=== PATIENT | female | born 1970 | race Caucasian/White ===

== ENCOUNTER 2024-08-07 09:36 | Outpatient (CLI) | payer OTHER, SELFPAY ==
--- OUTSIDE RECORDS SUMMARY | 2024-08-07 10:37 | XMS_ITS ---
Author Organization [facility] Address [address], [facility] [address] [place] [address] Phone Care Team Providers Care Chapter Relations Administrator Name Role Phone Slava Robles MD Unavailable [phone] Mac Zarate MD Unavailable Ander Ford MD Unavailable [phone] Charlie Perea MD Unavailable [phone] Patrice Brand MD Primary Care Provider [phone] Ajit Kinsey MD Unavailable Juanito Pearson MD Unavailable Active Problems Problem Noted Date Diagnosed Date Therapeutic drug monitoring 08/06/2024 Mastoid disorder, bilateral 08/06/2024 Intractable chronic cluster headache 08/06/2024 Chronic right shoulder pain 08/06/2024 New onset of headache in cancer patient 06/26/19 25 Tobacco use disorder, continuous 06/25/2024 Soft tissue infection 06/25/2024 Trigger finger of left thumb 05/15/2024 Gastroesophageal reflux disease without esophagi tis 03/27/2024 Vertigo 12/11/2023 Chronic pain syndrome 12/11/2023 Hypotension 12/11/2023 RLS (restless legs syndrome) 12/11/2023 Hematuria 10/23/2023 Urinary frequency 10/23/2023 Elevated LFTs 08/04/2023 B12 deficiency 08/04/2023 Vitamin D overdose 08/04/2023 RUQ pain 08/04/2023 Loose stools 08/04/2023 Postprandial abdominal pain in right upper quadr ant 08/04/2023 Hypothyroidism 06/28/2023 Abdominal pain 06/28/2023 Osteopenia 08/13/2020 Alcohol dependence 02/26/2019 Overview (08/11/2023): Last Assessment & Plan: Condition: stable Health consequences of continued alcohol abuse discussed. Encouraged to seek assistance with quitting or maintaining sobriety through PCP or another cessation program. Gave member [facility] National Helpline number ([phone]). Pt doesnt consider beer an alcoholic beverage. Follow up in: three months with PCP Chemotherapy-induced nausea 02/26/2019 Overview (08/11/2023): Last Assessment & Plan: Condition: stable Follow up in: three months with PCP Presence of tympanostomy tube in tympanic membra ne 08/29/2018 History of therapeutic radiation 07/25/2018 Overview (07/25/2018): Completed a hypo fractionated course of left breast radiotherapy 07/02/2018. Use of letrozole (Femara) 07/18/2018 Overview (08/15/2019): She was initially placed on tamoxifen 07/17/2018 which was switched to letrozole 08/16/2019 when she was documented to be postmenopausal. Chronic left-sided low back pain with left-sided sciatica 07/17/2018 Overview (07/25/2018): Of approximately 5 months duration. Progressive in nature. Plain films of the lumbar spine and left hip unremarkable 07/18/2018. H/O tobacco use, presenting hazards to health Overview (04/25/2018): 30 pack year history. Smokes 1 ppd of cigarettes. History of immunotherapy 04/25/2018 Overview (08/15/2019): 2 cycles of Herceptin plus Perjeta along with Taxotere from 12/06/2017 to 12/27/2017. Herceptin plus Perjeta held because of reduction LVEF. She resumed herceptin plus Perjeta 04/03/2018 after recovery of her LVEF and received her final cycle of Herceptin and Perjeta 03/26/2019 completing 12 months after resuming. History of cancer chemotherapy 04/25/2018 Overview (04/25/2018): 2 cycles of Taxotere plus Herceptin plus Perjeta from 12/06/2017 to 12/27/2017. 6 weekly cycles of paclitaxel from 01/17/2018 thru 02/21/2018. History of cardiomyopathy 04/25/2018 Overview (04/25/2018): Secondary to Herceptin plus Perjeta which was held after 2 cycles 12/27/2017 but resumed 04/03/2018 after documented recovery in LVEF. Encounter for screening mamm ogram for malignant neoplasm of breast 03/12/2018 Alcohol abuse, daily use 11/25/2017 Overview (04/25/2018): Admits to a daily six-pack of beer. Malignant neoplasm of left b reast in female, HER 2 positive, estrogen receptor positive 11/17/2017 Cancer Staging:Clinical: cT1c, cN0, cM0 - Signed by Mac Zarate MD on 11/25/2017 Pathologic stage from 04/25/2018:No Stage Recommended(ypT1a, pN0(sn), cM0, G2, ER: Positive, NC: Positive, HER2: Positive) - Signed by Ander Ford MD on 04/25/2018 Overview (08/15/2019): Clinical [id number] G2 triple positive left breast IDC. She received neoadjuvant therapy with 2 cycles of Taxotere plus Herceptin plus Perjeta from 12/06/2017 to 12/27/2017. Because of a drop in her LVEF the Herceptin plus Perjeta was held after 12/27/2017 and she received an additional 6 weekly cycles of paclitaxel from 01/17/2018 thru 02/21/2018. She then underwent a left partial mastectomy and left axillary sentinel lymph node biopsy 03/22/2018 with findings of [id number](sn)M0 G2 IDC. She resumed herceptin plus Perjeta 04/03/2018 after recovery of her LVEF. The start of her left breast radiotherapy was delayed somewhat because of a draining seroma of the left partial mastectomy cavity. She began a hypo fractionated course of left breast radiotherapy 05/31/2018 and completed 07/02/2018. She was started on tamoxifen 07/17/2018. She completed Herceptin and Perjeta 03/26/2019 for a total of 12 months. The tamoxifen was switched to letrozole 08/16/2019 after she was documented to be postmenopausal. Rheumatoid arthritis involvi ng both hands with positive rheumatoid factor 09/08/2017 Overview (04/25/2018): Rheumatoid factor 33.7 on 01/31/2014 with normal range 0.1-13.9. Hearing loss 10/23/2014 Overview (08/11/2023): Hearing loss Current Treatment and Therapy Plans SUPPORT - PROLIA (DENOSUMAB) - OSTEOPENIA* Plan Start Date:01/31/2022 Plan Provider:Mac Zarate MD Linked Problems Malignant neoplasm of nipple of left breast in female, estrogen receptor positive (HCC)Osteopenia of other site Treatment Medications Current Day (Day 1 , Cycle 6 - Planned for 06/24/2024) Next Day (Day 1, Cycle 7 - Planned for 12/09/2024) No medications scheduled. No medications schedul ed. No medications scheduled. Past Treatment and Therapy Plans ONCOLOGY SECONDARY SUPPORTIVE CARE Plan Name Start Date Discontinue Date Treatment Medications Discontinue Reason Plan Provider Cycles SUPPORT - PROLIA (DENOSUMAB) - OSTEOPENIA 1 01/31/2022 No medications scheduled. Therapy Complete Mac Zarate MD 2 of 8 cycles started ONCOLOGY TREATMENT Plan Name Start Date Discontinue Date Treatment Medications Discontinue Reason Plan Provider Cycles BREAST - HERCEPTIN PERJETA 018 05/12/2022 pertuzumab (PERJETA) infusiontrastuzumab (HERCEPTIN) infusion Therapy Complete Mac Zarate MD 19 of 19 cycles started BREAST - TAXOL / PERJETA / HERCEPTIN 01/18/20 18 04/03/2018 PACLitaxel (TAXOL) chemo infusionpertuzumab (PERJETA) infusiontrastuzumab (HERCEPTIN) infusion Therapy Complete Mac Zarate MD 3 of 4 cycles started BREAST - TAXOTERE HERCEPTIN PERJETA 12/06/19 18 01/08/2018 DOCEtaxel (TAXOTERE) chemo infusionpertuzumab (PERJETA) infusiontrastuzumab (HERCEPTIN) infusion Not Tolerated Mac Zarate MD 2 of 4 cycles started Resolved Problems Problem Noted Date Diagnosed Date Resolved Date History of left breast cancer 11/08/2019 02/13/2020 Internal hemorrhoid, bleeding 05/15/2019 08/15/2019 Hot flashes due to tamoxifen 10/13/2018 08/15/2019 Hearing aid worn 04/25/2018 02/13/2020 Overview (04/25/2018): Has bilateral hearing aids but does not use regularly. Prophylactic immunotherapy 04/25/2018 0 08/15/2019 Overview (04/25/2018): Resumption of herceptin plus Perjeta 04/03/2018 after recovery a LVEF. Herceptin plus Perjeta had been held after 2 cycles 12/27/2017 because of drop in LVEF. History of lymph node biopsy 04/25/2018 07/02/2018 Overview (04/25/2018): Left axillary sentinel lymph node biopsy 03/22/2018 in conjunction with a left partial mastectomy and preceded by neoadjuvant chemotherapy and immunotherapy. History of partial mastectomy of left breast 9 07/02/2018 Overview (04/25/2018): 03/22/2018 in conjunction with a left axillary sentinel lymph node biopsy and preceded by neoadjuvant chemotherapy and immunotherapy. Family history of breast cancer in mother 04/25/2018 07/25/2018 Overview (04/25/2018): Mother diagnosed with pathological stage IIA ([id number]) ER/NC positive and HER2 negative left breast IDC in 2010 at the age of 72 years. 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 Left forearm pain 01/19/2018 03/01/2018 Fluid retention in legs 01/12/201811/2018 Drug-induced insomnia 01/12/20182017 Oral thrush 01/02/2018 01/19/2018 Taxotere-induced skin rash 01/02/2018 0 04/24/2018 Left breast mass 11/06/2017 11/25/2017 Screening for breast cancer 09/08/2017 11/25/2017 Screening for cervical cancer 09/08/2017 11/25/2017 Benign neoplasm of skin of back 06/23/2017 08/21/2017 Aural polyp, right 06/23/2017 0 Hypertension 04/17/2017 10/13/2018 Conductive hearing loss, middle ear 11/07/2016 02/13/2020 Chronic serous otitis media of right ear 09/22/2016 06/02/2017 Vestibular neuronitis of right ear 09/22/2016 08/15/2019 Chronic vertigo 08/16/2016 08/15/2019 Overview (04/25/2018): Managed with daily Valium. Arthritis 10/13/2018 Myelodysplastic syndrome Myelodysplastic syndrome 07/2022
--- OUTSIDE RECORDS SUMMARY | 2024-08-07 10:37 | XMS_ITS | Encounter Summary ---
Author Organization [facility] Address [address] [place] [address] Phone Care Team Providers Care Infant Teacher Name Role Phone Slava Robles MD Unavailable Noah Menard MD Primary Care Provider [phone] Mac Zarate MD Unavailable [phone] Ander Ford MD Unavailable [phone] Milly Costa MD Unavailable [phone] Charlie Perea MD Unavailable [phone] Jaycee Lisa APRN, HEAD OF DATA Unavailable [phone] Lit Webb MD Primary Care Provider [phone] Patrice Brand MD Primary Care Provider [phone] Ajit Kinsey MD Unavailable Juanito Pearson MD Unavailable Reason for Visit * Reason Comments Medication Refill Encounter Details Date Type Department Care Team (Late st Contact Info) Description 05/12/2020 Refill [facility] - Family [facility] [address] [place] [address] Noah Menard MD [address] [address] Medication Refill Social History Tobacco Use Types Packs/Day Years Used Date Smoking Tobacco: Every Day Cigarettes 1 35.9 Started: 09/29/1988 Smokeless Tobacco: Never Comments:Declined counseling . Alcohol Use Standard Drinks/Week Comments Yes 0 (1 standard drink = 0.6 oz pur e alcohol) 6-pack of beer daily. PHQ-2 Answer Date Recorded Total Score - Questions 1-9 0 1008/2019 Sexually Active Control Partners Comments Not Currently Comments No Sex and Gender Information Value Date Recorded Sex Assigned at Not on file Legal Sex Female 2:27 PM CDT Gender Identity Not on file Sexual Orientation Not on file Occupation Industry Job Start Date Job End Date unemployed Not on file Not on file Not on file documented as of this encounter Miscellaneous Notes * Telephone Encounter - Noah Menard MD - 05/13/2020 9:00 AM CST Prescription pending signature NESS INTELLIGENCE ADMINISTRATOR * Telephone Encounter - Hailey Cortez RN - 05/13/2020 8:54 AM CST Medication failed the protocol, provider to review and approve the medication order if appropriate. Requested Prescriptions Pending Prescriptions Disp Refills diazePAM (VALIUM) 2 MG Tablet [Pharmacy Med Name: DIAZEPAM 2 MG TABLET] 90 Tab Sig: TAKE 1/2 TO 1 TABLET BY MOUTH TWICE A DAY TO 3 TIMES A DAY NEEDED FOR VERTIGO Not Delegated - Psychiatry: Anxiolytics/Hypnotics Failed - 05/12/2020 5:10 PM Failed - This refill cannot be delegated Passed - Valid encounter within last 6 months Past Office Visits Recent Outpatient Visits 3 months ago Gastroesophageal reflux disease without esophagitis [facility] - Family Medicine - Noah Schroeder MD 7 months ago Continuous tobacco abuse [facility] Medical [facility] - Family [facility] - Noah Schroeder MD 12 months ago Rheumatoid arthritis involving both hands with positive rheumatoid factor (HCC) [facility] - Family Medicine - Ale Torre APN, HEAD OF DATA 1 year ago Vaginal pain [facility] Leanna Gore, PAC 1 year ago Continuous tobacco abuse [facility] Noah Menard MD Upcoming Appointments Future Appointments In 1 week Noah Menard MD [facility], [facility] In 3 weeks [facility] CC INFUSION CHR12 [facility], [facility] In 3 months Ander Ford [facility] In 3 months Mac Zarate MD [facility], [facility] In 3 months [facility] CC INFUSION CHR4 [facility], [facility] TROUBLE LOCATER - Recent and Past Visits Recent Visits Date Type Provider Dept 01/20/20 Office Visit [facility] [place] 09/18/19 Office Visit [facility] Men[facility] MD [facility] [place] 05/15/19 Office Visit Ale Romano APN, HEAD OF DATA [facility] Showing recent visits within past 460 days with a meds authorizing provider and meeting all other requirements Future Appointments Date Type Provider Dept 05/25/20 Appointment Noah Menard MD [facility] Showing future appointments within next 90 days with a meds authorizing provider and meeting all other requirements NESS INTELLIGENCE ADMINISTRATOR documented in this encounter Plan of Treatment Upcoming Encounters Date Type Department Care Team (Late st Contact Info) Description 09/13/2024 1:30 PM CDT Office Visit [facility] - Obstetrics & Gynecology [facility] [address] [place] [address] Katja Galan APRN, HEAD OF DATA [address] [place] [address] 09/23/2024 9:30 AM CDT Clinical Support [facility] [address] [place] [address] Mac Zarate MD [address] [place] [address] Discharge Disposition: Discharged to home or Selfcare 10/09/2024 10:00 AM CDT Clinical Support [facility] [address] [place] [address] Mac Zarate MD [address] [place] [address] Discharge Disposition: Discharged to home or Selfcare 10/09/2024 11:00 AM CDT Office Visit [facility] Neurology [facility] [address] [place] [address] Oh De Oliveira MD [address] [place] [address] 11/18/2024 9:30 AM CDT Clinical Support [facility] [address] [place] [address] Mac Zarate MD [address] [place] [address] Discharge Disposition: Discharged to home or Selfcare 12/12/2024 10:45 AM CDT Office Visit [facility] [address] [place] [address] Patrice Brand MD [address] [address] 01/13/2025 9:30 AM CDT Clinical Support [facility] [address] [place] [address] Mac Zarate MD [address] [place] [address] Discharge Disposition: Discharged to home or Selfcare 04/01/2025 9:30 AM BUSINESS INTELLIGENCE ADMINISTRATOR Clinical Support [facility] [address] [place] [address] Mac Zarate MD [address] [place] [address] Discharge Disposition: Discharged to home or Selfcare 04/09/2025 11:15 AM BUSINESS INTELLIGENCE ADMINISTRATOR Office Visit [facility] [address] [place] [address] Mac Zarate MD [address] [place] [address] Ramona Honeycutt, POWER HOUSE CONTROL ROOM OPERATOR, HEAD OF DATA [address] [place] [address] Discharge Disposition: Discharged to home or Selfcare 04/09/2025 11:30 AM BUSINESS INTELLIGENCE ADMINISTRATOR Clinical Support [facility] [address] [place] [address] Discharge Disposition: Discharged to home or Selfcare 09/23/2025 10:00 AM CDT Office Visit [facility] [address] [place] [address] Ander Ford MD [address] [place] [address] Discharge Disposition: Discharged to home or Selfcare documented as of this encounter Visit Diagnoses Not on filedocumented in this encounter Additional Health Concerns Infection Onset Date Last Indicated Resolved Time COVID - 19 01/11/2021 01/13/202101/31/2021 12:1 6 AM CDT C. difficile Rule-Out 11/02/2022 11/02/20222022 12:16 AM CDT COVID - 19 05/09/2024 05/09/2024 05/09/2024 12:5 4 PM BUSINESS INTELLIGENCE ADMINISTRATOR Assessment Noted Time PHQ-9 Depression Total Score: 0 01/20/20 11:08 AM CDT documented as of this encounter Care Teams Infant Teacher Relationship Specialty Start Date End Date Noah Menard MD [address] [address] PCP - General Family Medicine 07/10/17 12/23/21 Lit Webb MD [address] [place] [address] PCP - General Family Medicine 12/24/21 08/16/23 Patrice Brand MD [address] [address] PCP - General Family Medicine 08/17/23 Slava Robles MD Obstetrics & Gynecology 08/16/16 Mac Zarate MD [address] [address] Consulting Physician Hematology 04/18/18 Ander Ford MD [address] [address] Consulting Physician Radiation Oncology 04/24/18 Milly Costa MD [address] [address] Consulting Physician Urology 04/25/18 02/16/21 Charlie Perea MD [address] [place] [address] Consulting Physician Otolaryngology 02/13/20 Jaycee Lisa APRN, HEAD OF DATA [address] [place] [address] Nurse Practitioner Medical Oncology 08/13/20 04/12/22 Ajit Kinsey MD [address] [facility] [address] [place] [address] Consulting Physician Urology 11/29/23 Juanito Pearson MD [address] [facility] [address] [place] [address] Consulting Physician Colon and Rectal Surgery 01/10/24 documented as of this encounter
--- OUTSIDE RECORDS SUMMARY | 2024-08-07 10:37 | XMS_ITS | Encounter Summary ---
Author Organization [facility] Address [address] [place] [address] Phone Care Team Providers Care Metal Wire Coating Operator Name Role Phone Slava Robles MD Unavailable [phone] Noah Menard MD Primary Care Provider [phone] Mac Zarate MD Unavailable [phone] Ander Ford MD Unavailable [phone] Milly Costa MD Unavailable [phone] Charlie Perea MD Unavailable [phone] Jaycee Lisa APRN, GRISTMILL OPERATOR Unavailable [phone] Lit Webb MD Primary Care Provider [phone] Patrice Brand MD Primary Care Provider [phone] Ajit Kinsey MD Unavailable Juanito Pearsno MD Unavailable Reason for Visit * Reason Comments Medication Refill Encounter Details Date Type Department Care Team (Late st Contact Info) Description 05/04/2020 Refill [facility] [address] [place] [address] Noah Menard MD [address] [address] Medication Refill Social History Tobacco Use Types Packs/Day Years Used Date Smoking Tobacco: Every Day Cigarettes 1 35.9 Started: 09/29/1988 Smokeless Tobacco: Never Comments:Declined counseling . Alcohol Use Standard Drinks/Week Comments Yes 0 (1 standard drink = 0.6 oz pur e alcohol) 6-pack of beer daily. PHQ-2 Answer Date Recorded Total Score - Questions 1-9 0 10/08/2019 Sexually Active Control Partners Comments Not Currently Comments No Sex and Gender Information Value Date Recorded Sex Assigned at Not on file Legal Sex Female 2:27 PM CDT Gender Identity Not on file Sexual Orientation Not on file Occupation Industry Job Start Date Job End Date unemployed Not on file Not on file Not on file COVID-19 Exposure Response Date Recorded In the last month, have you been in contact with someone who was confirmed or suspected to have Coronavirus / COVID-19? No / Unsure 04/08/2020 10:24 AM MONUMENT MASON documented as of this encounter Miscellaneous Notes * Telephone Encounter - Noah Menard MD - 05/05/2020 11:57 AM CST Prescription pending signature MENT MASON * Telephone Encounter - Hailey Cortez RN - 05/05/2020 11:53 AM CST Medication failed the protocol, provider to review and approve the medication order if appropriate. Requested Prescriptions Pending Prescriptions Disp Refills traMADol (ULTRAM) 50 MG Tablet [Pharmacy Med Name: TRAMADOL HCL 50 MG TABLET] 180 Tab 2 Sig: TAKE 1-2 TABLETS BY MOUTH EVERY 6 HOURS NEEDED FOR MODERATE OR MORE SEVERE PAIN Not Delegated - Analgesics: Opioid Agonists Failed - 05/04/2020 4:11 PM Failed - This refill cannot be delegated Passed - Valid encounter within last 6 months Past Office Visits Recent Outpatient Visits 3 months ago Gastroesophageal reflux disease without esophagitis [facility] - Noah Schroeder MD 7 months ago Continuous tobacco abuse [facility] - Noah Schroeder MD 11 months ago Rheumatoid arthritis involving both hands with positive rheumatoid factor ([facility]CC[facility] Upcoming Appointments Future Appointments In 2 weeks Noah Menard MD [facility], [facility] In 4 weeks [facility] CC INFUSION [facility], [facility] In 3 months Ander Ford [facility] In 3 months Mac Zarate MD [facility], [facility] In 3 months [facility] CC INFUSION [facility]4 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 09/18/19 Office Visit Noah Menard MD [facility] 05/15/19 Office Visit Ale Romano APN, MALLORY [facility] Showing recent visits within past 460 days with a meds authorizing provider and meeting all other requirements Future Appointments Date Type Provider Dept 05/25/20 Appointment [facility] Showing future appointments within next 90 days with a meds authorizing provider and meeting all other requirements MENT MASON documented in this encounter Plan of Treatment Upcoming Encounters Date Type Department Care Team (Late st Contact Info) Description 09/13/2024 1:30 PM CDT Office Visit [facility] Obstetrics & Gynecology [facility] [address] [place] [address] Katja Galan, TRIM MACHINE OPERATOR, GRISTMILL OPERATOR [address] [place] [address] 09/23/2024 9:30 AM CDT Clinical Support [facility] [address] [place] [address] Mac Zarate MD [address] [place] [address] Discharge Disposition: Discharged to home or Selfcare 10/09/2024 10:00 AM CDT Clinical Support [facility] [address] [place] [address] Mac Zarate MD [address] [place] [address] Discharge Disposition: Discharged to home or Selfcare 10/09/2024 11:00 AM CDT Office Visit [facility] Neurology [facility] [address] [place] [address] Oh De Oliveira MD [address] [place] [address] 11/18/2024 9:30 AM CDT Clinical Support [facility] [address] [place] [address] Mac Zarate MD [address] [place] [address] Discharge Disposition: Discharged to home or Selfcare 12/12/2024 10:45 AM CDT Office Visit [facility] [address] [place] [address] Patrice Brand MD #[address] [address] 01/13/2025 9:30 AM CDT Clinical Support [facility] [address] [place] [phone] Mac Zarate MD [address] [place] [address] Discharge Disposition: Discharged to home or Selfcare 04/01/2025 9:30 AM MONUMENT MASON Clinical Support [facility] [address] [place] [phone] Mac Zarate MD [address] [place] [address] Discharge Disposition: Discharged to home or Selfcare 04/09/2025 11:15 AM MONUMENT MASON Office Visit [facility] [address] [place] [phone] Mac Zarate MD [address] [place] [address] Ramona Honeycutt, TRIM MACHINE OPERATOR, GRISTMILL OPERATOR [address] [place] [address] Discharge Disposition: Discharged to home or Selfcare 04/09/2025 11:30 AM MONUMENT MASON Clinical Support [facility] [address] [place] [phone] Discharge Disposition: Discharged to home or Selfcare 09/23/2025 10:00 AM CDT Office Visit [facility] [address] [place] [phone] Ander Ford MD [address] [place] [address] Discharge Disposition: Discharged to home or Selfcare documented as of this encounter Visit Diagnoses Diagnosis Chronic left-sided low back pain with left-sided sciatica Rheumatoid arthritis involving both hands with positive rheumatoid factor (HCC) documented in this encounter Additional Health Concerns Infection Onset Date Last Indicated Resolved Time COVID - 19 01/11/2021 01/13/2021 01/31/2021 12:1 6 AM CDT C. difficile Rule-Out 11/02/2022 11/02/20222022 12:16 AM CDT COVID - 19 05/09/2024 05/09/2024 05/09/2024 12:5 4 PM MONUMENT MASON Assessment Noted Time PHQ-9 Depression Total Score: 0 01/20/20 20 11:08 AM CDT documented as of this encounter Care Teams Metal Wire Coating Operator Relationship Specialty Start Date End Date Noah Menard MD [address] [address] PCP - General Family Medicine 07/10/17 12/23/21 Lit Webb MD [address] [place] [address] PCP - General Family Medicine 12/24/21 08/16/23 Patrice Brand MD #[address] [address] PCP - General Family Medicine 08/17/23 Slava Robles MD Obstetrics & Gynecology 08/16/16 Mac Zarate MD #[address] [address] Consulting Physician Hematology 04/18/18 Ander Ford MD #[address] [place] [address] Consulting Physician Radiation Oncology 04/24/18 Milly Costa MD [address]2 [facility] [address] [place] [address] Consulting Physician Urology 04/25/18 02/16/21 Charlie Perea MD [address] [facility] [address] [place] [address] Consulting Physician Otolaryngology 02/13/20 Jaycee Lisa APRN, GRISTMILL OPERATOR [address] [place] [address] Nurse Practitioner Medical Oncology 08/13/20 04/12/22 Ajit Kinsey MD #2 [facility] [address] [place] [address] Consulting Physician Urology 11/29/23 Juanito Pearson MD [address]2 [facility] [address] [place] [address] Consulting Physician Colon and Rectal Surgery 01/10/24 documented as of this encounter
--- OUTSIDE RECORDS SUMMARY | 2024-08-07 10:37 | XMS_ITS | Clinical Summary ---
Author Organization [facility] Address [address] [facility], [facility] [address] [place] [address] Phone Care Team Providers Care Community Integration Specialist Name Role Phone Slava Robles MD Unavailable [phone] Mac Zarate MD Unavailable [phone] Ander Ford MD Unavailable [phone] Charlie Perea MD Unavailable [phone] Patrice Brand MD Primary Care Provider [phone] Ajit Kinsey MD Unavailable Juanito Pearson MD Unavailable Allergies Active Allergy Reactions Criticality Noted Date Comments Docetaxel Rash High 03/12/2018 Medications naloxone HCl (Narcan) 4 MG/0.1ML LiquidIndications: Rheumatoid arthritis involving both hands with positive rheumatoid factor (HCC),Chronic left-sided low back pain with left-sided sciatica 1 [place] by Nasal route as needed for Opioid Reversal (opioid overdose). administer for symptoms of overdose (severe sleepiness, breathing problems, not responsive). Call 911. May use additional dose to repeat 1 spray intranasally in 2-3 minutes if needed. 2 Each 12/03/19 23 Active pantoprazole (PROTONIX) 40 MG Tablet Delayed Response TAKE 1 TABLET BY MOUTH EVERY DAY 30 Tablet 08/31/19 24 Active VITAMIN D PO Take 1,000 Units by mouth daily. Active polyethylene glycol (GLYCOLAX, MIRALAX) 17 g Pack Take 17 g by mouth daily as needed for Constipation - 1st line. Dissolve in 4-8 oz of liquid. Active Ear Drops 6.5 % Solution Place in both ears as needed. 12/07/19 24 Active vitamin b-12 (CYANOCOBALAMIN) 500 MCG Tablet Take 500 mcg by mouth daily. Active levothyroxine (SYNTHROID) 50 MCG TabletIndications: Acquired hypothyroidism Take 1 Tablet by mouth daily. 90 Tablet 3 12/11/19 24 Active meloxicam (MOBIC) 7.5 MG TabletIndications: Rheumatoid arthritis involving both hands with positive rheumatoid factor (HCC),Chronic left-sided low back pain with left-sided sciatica Take 1 Tablet by mouth daily. 90 Tablet 3 12/11/19 24 Active pramipexole (MIRAPEX) 0.125 MG TabletIndications: RLS (restless legs syndrome) Take 1 Tablet by mouth daily as needed for Other. 90 Tablet 1 12/11/19 24 Active letrozole (FEMARA) 2.5 MG TabletIndications: Malignant neoplasm of nipple of left breast in female, estrogen receptor positive (HCC) TAKE 1 TABLET BY MOUTH EVERY DAY 90 Tablet 3 03/26/20 24 Active mometasone (ELOCON) 0.1 % Cream as needed. 03/21/20 24 Active traMADol (ULTRAM) 50 MG TabletIndications: Rheumatoid arthritis involving both hands with positive rheumatoid factor (HCC),Chronic left-sided low back pain with left-sided sciatica Take 1-2 Tablets by mouth every 8 hours as needed for Moderate or more severe pain. 180 Tablet 2 08/07/19 25 Active diazePAM (VALIUM) 2 MG TabletIndications: Vertigo Take 1 Tablet by mouth every 8 hours as needed for Other (vertigo). 90 Tablet 08/07/19 25 Active ondansetron (ZOFRAN-ODT) 8 MG TABLET DISPERSIBLEIndicat ions:Gastroesophag eal reflux disease without esophagitis Take 1 Tablet by mouth every 8 hours as needed for Nausea - 1st line. 40 Tablet 3 08/07/19 25 Active SUMAtriptan (IMITREX) 50 MG Tablet Take 1 Tablet by mouth once as needed for Headaches for up to 1 dose. Use as directed. May repeat dose in 2 hours if headache recurs. 9 Tablet 3 08/07/19 25 Active cloNIDine (CATAPRES) 0.1 MG Tablet Take just one pill at night for sleep. 180 Tablet 3 08/07/19 25 Active cloNIDine (CATAPRES) 0.1 MG Tablet Take one to two tabs po qhs for sleep 180 Tablet 3 08/11/19 24 025 Discontin ued(Dose adjustmen t) solifenacin (VESICARE) 5 MG Tablet Take 1 Tablet by mouth daily. 30 Tablet 3 10/23/19 24 025 Discontin ued(Med List Clean Up) traMADol (ULTRAM) 50 MG TabletIndications: Rheumatoid arthritis involving both hands with positive rheumatoid factor (HCC),Chronic left-sided low back pain with left-sided sciatica Take 1-2 Tablets by mouth every 8 hours as needed for Moderate or more severe pain. 180 Tablet 2 12/11/19 24 025 Discontin ued(Reord er) diazePAM (VALIUM) 2 MG TabletIndications: Vertigo Take 1 Tablet by mouth every 8 hours as needed for Other (vertigo). 90 Tablet 03/27/20 24 025 Discontin ued(Reord er) ondansetron (ZOFRAN-ODT) 8 MG TABLET DISPERSIBLEIndicat ions:Gastroesophag eal reflux disease without esophagitis Take 1 Tablet by mouth every 8 hours as needed for Nausea - 1st line. 40 Tablet 3 03/27/20 24 025 Discontin ued(Reord er) Ascorbic Acid (VITAMIN C PO) Take 500 mg by mouth daily. 025 Discontin ued(Med List Clean Up) Active Problems Problem Noted Date Diagnosed Date Therapeutic drug monitoring 08/06/2024 Mastoid disorder, bilateral 08/06/2024 Intractable chronic cluster headache 08/06/2024 Chronic right shoulder pain 08/06/2024 New onset of headache in cancer patient 06/26/19 Tobacco use disorder, continuous 06/25/2024 Soft tissue [...] PCP or another cessation program. Gave member [facility] National Helpline number ([phone]). Pt doesnt consider beer an alcoholic beverage. [...] Stage Recommended(ypT1a, pN0(sn), cM0, G2, ER: Positive, TN: Positive, HER2: Positive) - Signed by Ander Ford MD on 04/25/2018 Overview (08/15/2019): Clinical [id number] G2 triple positive left breast IDC. She [...] lymph node biopsy 03/22/2018 with findings of duQ1ncN4(sn)M0 G2 IDC. She resumed herceptin plus Perjeta [...] Hearing loss 10/23/2014 Overview (08/11/2023): Hearing loss Resolved Problems Problem Noted Date Diagnosed Date [...] (04/25/2018): Mother diagnosed with pathological stage IIA ([id number]) ER/TN positive and HER2 negative left breast IDC [...] pain 01/19/2018 03/01/2018 Fluid retention in legs 01/12/20180 11/2018 Drug-induced insomnia 01/12/20182017 Oral thrush 01/02/2018 01/19/2018 [...] Arthritis 10/13/2018 Myelodysplastic syndrome Myelodysplastic syndrome 07/2022 Encounters Date Type Department Care Team Description 08/06/2024 10:45 AM CDT Office Visit [facility] [place] [address] [place] [address] Patrice Brand MD Vertigo (Primary Dx); Rheumatoid arthritis involving both hands with positive rheumatoid factor (HCC); Chronic left-sided low back pain with left-sided sciatica; Gastroesophageal reflux disease without esophagitis; Therapeutic drug monitoring; Intractable chronic cluster headache; Bilateral hearing loss, unspecified hearing loss type; Mastoid disorder, bilateral; Chronic right shoulder pain; Hypotension, unspecified hypotension type Discharge Disposition: Discharged to home or Selfcare 08/06/2024 [facility]phone [facility] [place] [place] [address] [place] [address] Patrice Brand MD 08/06/2024 Travel 07/29/2024 9:30 AM CDT Clinical Support [facility] Oncology Services [address] [place] [address] Mac Zarate MD Malignant neoplasm of nipple of left breast in female, estrogen receptor positive (HCC) (Primary Dx) Discharge Disposition: Discharged to home or Selfcare 07/29/2024 Travel 07/02/2024 Telephone [facility] Oncology Services [address] [place] [address] Ander Ford MD Results (Please see dictated note.) 07/01/2024 12:17 PM CDT - 07/01/2024 11:59 PM CDT Hospital Encounter [facility] MRI [address] [place] [address] Ander Ford MD Discharge Disposition: Discharged to home or Selfcare 07/01/2024 Travel 06/25/2024 9:30 AM CDT Office Visit [facility] Oncology Services [address] [place] [phone] Ander Ford MD New onset of headache in cancer patient (Primary Dx); Malignant neoplasm of nipple of left breast in female, estrogen receptor positive (HCC); Use of letrozole (Femara); History of immunotherapy; History of therapeutic radiation; History of cancer chemotherapy; History of cardiomyopathy; Rheumatoid arthritis involving both hands with positive rheumatoid factor (HCC); Tobacco use disorder, continuous; Alcohol abuse, daily use; Soft tissue infection Discharge Disposition: Discharged to home or Selfcare 06/25/2024 Travel 06/03/2024 9:30 AM EDUCATION FACULTY MEMBER Clinical Support [facility] Oncology Services [address] [place] [phone] Mac Zarate MD Malignant neoplasm of nipple of left breast in female, estrogen receptor positive (HCC) (Primary Dx) Discharge Disposition: Discharged to home or Selfcare 06/03/2024 Travel 05/15/2024 1:19 PM EDUCATION FACULTY MEMBER Anesthesia Event [facility] Periop [address] [place] [address] Chevy Loza APRN, INTERNET NETWORK SPECIALIST 05/15/2024 12:10 PM EDUCATION FACULTY MEMBER - 05/15/2024 1:10 PM EDUCATION FACULTY MEMBER [facility] [address] [place] [address] Tristin Hou MD LEFT TRIGGER THUMB RELEASE 05/15/2024 9:53 AM EDUCATION FACULTY MEMBER - 05/15/2024 3:27 PM EDUCATION FACULTY MEMBER [facility] [address] [place] [address] Tristin Hou MD Trigger finger of left thumb Discharge Disposition: Discharged to home or Selfcare 05/15/2024 Travel 05/09/2024 11:45 AM EDUCATION FACULTY MEMBER - 05/09/2024 11:59 PM EDUCATION FACULTY MEMBER [facility] [address] [place] [address] Tristin Hou MD Discharge Disposition: Discharged to home or Selfcare 05/09/2024 11:38 AM EDUCATION FACULTY MEMBER - 05/09/2024 11:44 AM EDUCATION FACULTY MEMBER [facility] [address] [place] [address] Tristin Hou MD Discharge Disposition: Discharged to home or Selfcare 05/09/2024 Telephone [facility] Oncology Services [address] [place] [address] Ramona Honeycutt, SAWMILL MOULDER OPERATOR, IT FIELD TECHNICIAN 05/09/2024 Travel 05/09/2024 Transcribe Orders [facility] Patient Access Admitting [address] [place] [address] Tristin Hou MD Trigger thumb, left thumb (Primary Dx) from Last 3 Months Immunizations Immunization Administration Dates Next Due Influenza Vaccine 01/17/2020,,01/11/2019,01/24,01/14/2013,01/20/2012 Influenza Vaccine greater than 3 yrs 03/27/2024, 01/05/2021,12/27/2017 Influenza Vaccine, Quadrivalent, PF 01/10/2022,0 01/05/2021,01/17/2020 Influenza Vaccine,unspecifie d Formulation 01/15/2014,01/30/2013,01/14/2013,01/19 Influenza, Injectable, Mdck, Preservative Free 12/28/2022 Influenza, Injectable, Quadrivalent 01/11/2022,0 01/11/2019,01/25/2017 Influenza, Intradermal, Quad rivalent, Preservative Free 02/03/2016 Influenza, Seasonal, Injecta ble, Undefined 12/27/2017,01/20/2012 Influenza,Split Virus,Trivalent,Injectable,PF 03/27/2024 Pneumococcal Vaccine Adult - 23 Valent 8 Pneumococcal conjugate PCV20 , polysaccharide [id number] conjugate, adjuvant, PF 07/29/2022 TB Skin Test 01/20/2012 Family History Medical History Relation Name Comments No Known Problems Brother Deafness Father Liver Cancer Father Gallbladder and liver cancer by history. Diabetes Maternal Grandfather Morgan No Known Problems Maternal Grandmother Breast Cancer Mother Mildred Cancer Mother Mildred Glaucoma Mother Mildred Macular Degeneration Mother Mildred Osteoporosis Mother Mildred No Known Problems Paternal Grandfather No Known Problems Paternal Grandmother No Known Problems Sister Relation Name Status Comments Brother Daughter Father Maternal Grandfather Shannon Maternal Grandmother Mother Mildred Alive Paternal Grandfather Paternal Grandmother Sister Social History Tobacco Use Types Packs/Day Years Used Date Smoking Tobacco: Every Day Cigarettes 1 35.9 Started: 09/29/1988 Smokeless Tobacco: Never Tobacco Cessation:Ready to Q uit: No; Counseling Given: Yes Comments:Declined counseling. Alcohol Use Standard Drinks/Week Comments Yes 30 (1 standard drink = 0.6 oz pure alcohol) states she starting drinking after her daughter . [facility] Utilities Answer Date Recorded In the past 12 months has Optisort, [employer]Room, or water Pins threatened to shut off services in your home? No 04/04/2023 Social Connection and Isolat ion Panel [NHANES] Answer Date Recorded In a typical week, how many times do you talk on the phone with family, friends, or neighbors? More than three times a week 04/04/2023 How often do you get togethe r with friends or relatives? More than three times a week 04/04/2023 How often do you attend chur or jew services? Never 04/04/2023 Do you belong to any clubs o r organizations such as shinto groups, unions, fraternal or athletic groups, or school groups? No 04/04/2023 How often do you attend meet ings of the clubs or organizations you belong to? Never 04/04/2023 Are you , , di vorced, , never , or living with a partner? 04/04/2023 AUDIT-C Answer Date Recorded Q1: How often do you have a drink containing alc ohol? Patient declined 04/04/2023 Q2: How many drinks containi ng alcohol do you have on a typical day when you are drinking? Patient declined 04/04/2023 Q3: How often do you have si x or more drinks on one occasion? Patient declined 04/04/2023 Overall Financial Resource Strain (CARDIA) Answe r Date Recorded How hard is it for you to pa y for the very basics like food, housing, medical care, and heating? Not hard at all 04/04/2023 PHQ-2 Answer Date Recorded Total Score - Questions 1-9 0 07/17 [facility] - Occupational Stress Questionnaire Answer Date Recorded Do you feel stress - tense, restless, nervous, or anxious, or unable to sleep at night because your mind is troubled all the time - these days? Only a little 04/04/2023 Exercise Vital Sign Answer Date Recorde d On average, how many days pe r week do you engage in moderate to strenuous exercise (like a brisk walk)? 0 days 04/04/2023 On average, how many minutes do you engage in exercise at this level? 0 min 04/04/2023 Hunger Vital Sign Answer Date Recorded Within the past 12 months, y ou worried that your food would run out before you got the money to buy more. Never true 04/04/20 23 Within the past 12 months, t he food you bought just didn't last and you didn't have money to get more. Never true 04/04/2023 PRAPARE - Transportation Answer Date Re corded In the past 12 months, has l ack of transportation kept you from medical appointments or from getting medications? No 03/17 In the past 12 months, has l ack of transportation kept you from meetings, work, or from getting things needed for daily living? No 04/04/2023 Housing Stability Vital Sign Answer Shayan e Recorded In the last 12 months, was t here a time when you were not able to pay the mortgage or rent on time? No 04/04/2023 Number of Places Lived in the Last Year Not on f ile 04/04/2023 In the last 12 months, was t here a time when you did not have a steady place to sleep or slept in a care home (including now)? No 04/04/2023 Sexually Active Control Partners Comments Not Currently Post-menopausal Male Comments No Sex and Gender Information Value Date Recorded Sex Assigned at Not on file Legal Sex Female 2:27 PM CDT Gender Identity Not on file Sexual Orientation Not on file Occupation Industry Job Start Date Job End Date unemployed Not on file Not on file Not on file Last Filed Vital Signs Vital Sign Reading Time Taken Comments Blood Pressure 102/80 08/06/2024 10:38 AM CDT Pulse 59 08/06/2024 10:38 AM CDT Temperature 36.1 C (96.9 F) 08/06/2024 10:38 AM CDT Respiratory Rate 16 06/25/2024 9:12 AM CDT Oxygen Saturation 98% 08/06/2024 10:38 AM CDT Inhaled Oxygen Concentration - - Weight 55.3 kg (122 lb) 08/06/2024 10:38 AM CDT Height 172.7 cm (5' 8 ) 08/06/2024 10:38 AM CDT Body Mass Index 18.55 08/06/2024 10:38 AM CDT Plan of Treatment Upcoming Encounters Date Type Department Care Team (Late st Contact Info) Description 09/13/2024 1:30 PM CDT Office Visit [facility] - Obstetrics & Gynecology [facility] [address] [place] [address] Katja Galan, SAWMILL MOULDER OPERATOR, IT FIELD TECHNICIAN [address] [place] [address] 09/23/2024 9:30 AM CDT [facility] [address] [place] [address] Mac Zarate MD [address] [place] [address] Discharge Disposition: Discharged to home or Selfcare 10/09/2024 10:00 AM CDT Clinical Support [facility] Oncology Services [address] [place] [phone] Mac Zarate MD [address] [place] [address] Discharge Disposition: Discharged to home or Selfcare 10/09/2024 11:00 AM CDT Office Visit [facility] Neu[facility] [address] [place] [address] Oh De Oliveira MD [address] [place] [address] 11/18/2024 9:30 AM CDT Clinical Support [facility] Oncology Services [address] [place] [address] Mac Zarate MD [address] [place] [address] Discharge Disposition: Discharged to home or Selfcare 12/12/2024 10:45 AM CDT Office Visit [facility] - Family Medicine [facility] [address] [place] [address] Patrice Brand MD [address] [address] 01/13/2025 9:30 AM CDT Clinical Support [facility] Oncology Services [address] [place] [address] Mac Zarate MD [address] [place] [address] Discharge Disposition: Discharged to home or Selfcare 04/01/2025 9:30 AM EDUCATION FACULTY MEMBER Clinical Support [facility] Oncology Services [address] [place] [phone] Mac Zarate MD [address] [place] [address] Discharge Disposition: Discharged to home or Selfcare 04/09/2025 11:15 AM EDUCATION FACULTY MEMBER Office Visit [facility] Oncology Services [address] [place] [phone] Mac Zarate MD [address] [place] [address] Ramona Honeycutt, SAWMILL MOULDER OPERATOR, IT FIELD TECHNICIAN [address] [place] [address] Discharge Disposition: Discharged to home or Selfcare 04/09/2025 11:30 AM EDUCATION FACULTY MEMBER Clinical Support [facility] On[facility] Services [address] [place] [phone] Discharge Disposition: Discharged to home or Selfcare 09/23/2025 10:00 AM CDT Office Visit [facility] Oncology Services [address] [place] [phone] Ander Ford MD [address] [place] [address] Discharge Disposition: Discharged to home or Selfcare Health Maintenance Due Date Last Done Comments TdaP Immunization 1970 Hepatitis B Immunization (1 of 3 - 19+ 3-dose series) 1989 Zoster Immunization (1 of 2) 1989 HPV/Cotest 2000 Cologuard 2020 Immunochemical Fecal Occult Blood 2020 Lung Cancer Screening 08/12/2023 08/11/2022 SARS-COV-2 Immunization ( season) 2023 11/05/2021, 02/26/2021, 07/20/2020, Additional history exists Cervical Cancer Screening (CCS) 03/22/2024 Pap Smear 03/22/2024 03/22/2021, 09/16, 06/10/2013 Mammogram 10/31/2024 11/01/2023, 10/15, 10/27/2021, Additional history exists Colonoscopy 05/06/2031 05/06/2021, 05/06/2021 Colorectal Cancer Screening 05/06/2031 Respiratory Syncytial Virus (RSV) Immunization (Adult) (1 - 1-dose 75+ series) 2045 05/06/2021 Pneumococcal Immunization (50+ years) Completed 07/29/2022, 03/12/2018 Pneumococcal Immunization Combined Discontinued 07/29/2022, 03/12/2018 Hepatitis C Virus (HCV) Screening Completed 10/31/2023, 01/31/2014 Discussion re Starting/Frequency of Mammograms Discontinued 11/01/2023, 10/28/2022, 10/27/2021, Additional history exists Influenza Immunization Completed , 03/27/2024, 12/28/2022, Additional history exists Meningococcal Immunization (ACWY) Aged Out No longer eligible based on patient's age to complete this topic Rotavirus Immunization Aged Out No lo nger eligible based on patient's age to complete this topic Medical Devices Implanted Type Area On Site Wastewater Systems Technician Device Identifier Shelf Expiration Date Model / Serial / Lot Port Implantable Infusion Powerport Mri Airguard Chronoflex 8fr 1 Lumen Attachable Cath Intermediate - [id number] Implanted:Qty: 1 on 12/01/2017 by Juan Ramires MD at [facility] IMPLANT Right: Chest [employer] 06/15/2019 [id number] / [id number] / [id number] Tube Ventilation 1.14mm Tirado Bevel Grommet Ear [employer] - [id number] Implanted:Qty: 2 on 10/17/2023 by Charlie Perea MD at [facility] IMPLANT Bilatera l: Ear [employer] 05/15/2029 [id number] / [id number] / [id number] Triune Vent Tube Implanted:Qty: 1 on 11/07/2016 by Lalo Paniagua MD at [facility] Right: Ear [employer] 05/14/2020 [id number] / [id number] / [id number] Procedures Procedure Name Priority Date/Time Associated Diagnosis Comments MRI BRAIN W/WO CONTRAST Routine 07/01/2024 1:12 PM CDT Malignant neoplasm of nipple of left breast in female, estrogen receptor positive (HCC) New onset of headache in cancer patient INCISE FINGER TENDON SHEATH 05/15/2024 12:56 PM EDUCATION FACULTY MEMBER TRIGGER THUMB, LEFT Special Needs NEEDS PREG TEST Hx of Left breast cancer, bilateral hearing loss (no hearing aids) Rheumatoid arthritis, Gerd, 30 Beers weekly, smokes 1ppd 5ft 8in 122lb POCT URINE HCG () STAT 05/15/2024 10:30 AM EDUCATION FACULTY MEMBER XR CHEST 2 VIEWS Routine 05/09/2024 12:24 PM EDUCATION FACULTY MEMBER Trigger thumb, left thumb EKG 12 LEAD Routine 05/09/2024 11:49 AM EDUCATION FACULTY MEMBER Trigger thumb, left thumb CBC WITH AUTO DIFFERENTIAL Routine 05/09/2024 11:41 AM EDUCATION FACULTY MEMBER Trigger thumb, left thumb COMPLETE BLOOD COUNT (CBC) WITH DIFF Routine 05/09/2024 11:41 AM EDUCATION FACULTY MEMBER Trigger thumb, left thumb CMP (COMPREHENSIVE METABOLIC PANEL) Routine 05/09/2024 11:41 AM EDUCATION FACULTY MEMBER Trigger thumb, left thumb SARS-COV-2 BY MOLECULAR Routine 05/09/2024 11:41 AM EDUCATION FACULTY MEMBER Trigger thumb, left thumb MIS SCREENING BILATERAL DIGITAL W CAD W WILLIAM Routine 11/01/2023 10:45 AM CDT Encounter for screening mammogram for malignant neoplasm of breast HEPATITIS PANEL ACUTE (AHP) Routine 10/31/2023 10:50 AM CDT Elevated LFTs CT CHEST SCREENING WO Routine 08/11/2022 11:30 AM CDT H/O tobacco use, presenting hazards to health PATHOLOGY CYTOLOGY RN CHILD Routine 03/22/2021 12:05 PM EDUCATION FACULTY MEMBER Encounter for gynecological examination without abnormal finding from Last 3 Months or Most Recently Relevant to Health Maintenance Results * MRI BRAIN W/WO CONTRAST (07/01/2024 1:12 PM CDT) Anatomical Region Laterality Modality Head N/A Magnetic Resonan ce 07/02/2024 10:2 5 AM CDT Impressions 07/02/2024 10:28 AM CDT IMPRESSION: Significant portions of the brain are obscured on multiple sequences, as detailed above. Within this limitation, no acute intracranial findings and no evidence of intracranial metastatic disease are seen. Bilateral mastoid effusions. Narrative 07/02/2024 10:28 AM CDT EXAM DESCRIPTION: MRI BRAIN W/WO CONTRAST REASON FOR STUDY: C/o intermittent headaches x one month TECHNIQUE: Multiplanar imaging includes noncontrast T1, T2, FLAIR, diffusion with ADC map and post contrast T1 sequences. Additional sequence(s) sensitive to blood products. Images stored on PACS. CONTRAST TYPE/DOSE: 12mL of GADOTERIDOL 279.3 MG/ML IV SOLN injected via Intravenous COMPARISON: 01/01/2020 FINDINGS: The posterior fossa is partially obscured on multiple sequences, including the diffusion-weighted sequence and FLAIR sequence. Large portion of the anterior right brain are obscured by susceptibility artifact on the diffusion-weighted sequence. The right cerebral hemisphere is partially obscured to a lesser degree on the postcontrast sequences. CEREBRUM: No hemorrhage, edema, or mass effect. No abnormal enhancement. Ventricular size is normal WHITE MATTER: Normal. POSTERIOR FOSSA: Brainstem and cerebellum appear unremarkable. No abnormal enhancement. DIFFUSION IMAGING: Large portions of the brain are obscured by artifact. In the evaluated portions of the brain. No diffusion restriction is seen to suggest acute ischemia. EXTRAAXIAL SPACES: No hemorrhage. No mass or abnormal enhancement. BRAIN VOLUME: Within normal limits for age. PITUITARY: Unremarkable. VASCULATURE: No flow disturbance identified. ORBITS: Poor fat suppression at the right orbit and portion of the left orbit. Within this limitation, no gross acute finding is seen PARANASAL SINUSES AND MASTOIDS: Bilateral mastoid effusions. No significant paranasal sinus disease OTHER: Extensive susceptibility artifact is noted in the region of the right supervisor landscape space , similar to 2020. THIS IS AN ELECTRONICALLY VERIFIED FINAL REPORT 07/02/2024 10:25 AM - Electronically signed by Geovanny Fofana M.D. MZ: MAROC A Report ID: [id number] Reading Location: [id number] Procedure Note Geovanny Fofana MD - 07/02/2024 EXAM DESCRIPTION: MRI BRAIN W/WO CONTRAST REASON FOR STUDY: C/o intermittent headaches x one month TECHNIQUE: Multiplanar imaging includes noncontrast T1, T2, FLAIR, diffusion with ADC map and post contrast T1 sequences. Additional sequence(s) sensitive to blood products. Images stored on PACS. CONTRAST TYPE/DOSE: 12mL of GADOTERIDOL 279.3 MG/ML IV SOLN injected via Intravenous COMPARISON: 01/01/2020 FINDINGS: The posterior fossa is partially obscured on multiple sequences, including the diffusion-weighted sequence and FLAIR sequence. Large portion of the anterior right brain are obscured by susceptibility artifact on the diffusion-weighted sequence. The right cerebral hemisphere is partially obscured to a lesser degree on the postcontrast sequences. CEREBRUM: No hemorrhage, edema, or mass effect. No abnormal enhancement. Ventricular size is normal WHITE MATTER: Normal. POSTERIOR FOSSA: Brainstem and cerebellum appear unremarkable. No abnormal enhancement. DIFFUSION IMAGING: Large portions of the brain are obscured by artifact. In the evaluated portions of the brain. No diffusion restriction is seen to suggest acute ischemia. EXTRAAXIAL SPACES: No hemorrhage. No mass or abnormal enhancement. BRAIN VOLUME: Within normal limits for age. PITUITARY: Unremarkable. VASCULATURE: No flow disturbance identified. ORBITS: Poor fat suppression at the right orbit and portion of the left orbit. Within this limitation, no gross acute finding is seen PARANASAL SINUSES AND MASTOIDS: Bilateral mastoid effusions. No significant paranasal sinus disease OTHER: Extensive susceptibility artifact is noted in the region of the right supervisor landscape space , similar to 2020. THIS IS AN ELECTRONICALLY VERIFIED FINAL REPORT 07/02/2024 10:25 AM - Electronically signed by Geovanny Fofana M.D. MZ: MZ Report ID: [id number] Reading Location: [id number] IMPRESSION: Significant portions of the brain are obscured on multiple sequences, as detailed above. Within this limitation, no acute intracranial findings and no evidence of intracranial metastatic disease are seen. Bilateral mastoid effusions. Ander Ford MD IMG MR ORDERABLES Final Result * POCT Urine HCG () (05/15/2024 10:30 AM EDUCATION FACULTY MEMBER) POC URINE Negative POC URINE CONTROL Elastic Attacher Chainstitch Pass Urine 05/15/2024 10:3 0 AM EDUCATION FACULTY MEMBER Tristin Hou MD POINT OF CARE TESTING (MANUAL) F inal Result * XR CHEST 2 VIEWS (05/09/2024 12:24 PM EDUCATION FACULTY MEMBER) Anatomical Region Laterality Modality Chest N/A Digital Radiogra phy 05/09/2024 7:36 PM EDUCATION FACULTY MEMBER Impressions 05/09/2024 7:38 PM EDUCATION FACULTY MEMBER IMPRESSION: No acute cardiopulmonary abnormality. Narrative 05/09/2024 7:38 PM EDUCATION FACULTY MEMBER EXAM DESCRIPTION: XR CHEST 2 VIEWS REASON FOR STUDY: pre op for surg on finger TECHNIQUE: Frontal and lateral radiographic view(s) of the chest. COMPARISON: 12/01/2017 FINDINGS: LUNGS: No focal opacity, pleural effusion, or pneumothorax. HEART/MEDIASTINUM: Cardiac silhouette normal in size. Mediastinal and hilar contours appear normal. LINES/TUBES: Right-sided Port-A-Cath with the tip near the superior cavoatrial junction. BONES: No acute osseous abnormality. THIS IS AN ELECTRONICALLY VERIFIED FINAL REPORT 05/09/2024 7:36 PM - Electronically signed by Adriano Valadez M.D. AM: AM Report ID: [id number] Reading Location: [id number] Procedure Note Adriano Valadez MD - 05/09/2024 EXAM DESCRIPTION: XR CHEST 2 VIEWS REASON FOR STUDY: pre op for surg on finger TECHNIQUE: Frontal and lateral radiographic view(s) of the chest. COMPARISON: 12/01/2017 FINDINGS: LUNGS: No focal opacity, pleural effusion, or pneumothorax. HEART/MEDIASTINUM: Cardiac silhouette normal in size. Mediastinal and hilar contours appear normal. LINES/TUBES: Right-sided Port-A-Cath with the tip near the superior cavoatrial junction. BONES: No acute osseous abnormality. THIS IS AN ELECTRONICALLY VERIFIED FINAL REPORT 05/09/2024 7:36 PM - Electronically signed by Adriano Valadez M.D. AM: AM Report ID: [id number] Reading Location: [id number] IMPRESSION: No acute cardiopulmonary abnormality. Tristin Hou MD IMG DIAGNOSTIC ORDERABLES Final Result * EKG 12 LEAD (05/09/2024 11:49 AM EDUCATION FACULTY MEMBER) Ventricular Rate 73 BPM EXTERNAL EKG Atrial Rate 73 BPM EXTERNAL EKG P-R Interval 148 ms EXTERNAL EKG QRS Duration 74 ms EXTERNAL EKG Q-T Duration 384 ms EXTERNAL EKG QTC CALCULATION 423 ms EXTERNAL EKG P Tripp 59 degrees EXTERNAL EKG R Tripp 54 degrees EXTERNAL EKG T Tripp 31 degrees EXTERNAL EKG 05/09/2024 11:4 9 AM EDUCATION FACULTY MEMBER Impressions EXTERNAL EKG - 05/11/2024 10:02 AM EDUCATION FACULTY MEMBER Normal sinus rhythm Normal ECG ~ Confirmed by Martin Ledesma ([id number]) on 05/11/2024 10:02:10 AM Narrative Procedure Note Martin Ledesma MD - 05/11/2024 IMPRESSION: Normal sinus rhythm Normal ECG ~ Confirmed by Martin Ledesma ([id number]) on 05/11/2024 10:02:10 AM Tristin Hou MD IMG ECG ORDERABLES Final Result EXTERNAL EKG * SARS-COV-2 BY MOLECULAR (05/09/2024 11:41 AM EDUCATION FACULTY MEMBER) Pathologist [facility] SARSCOV2 NOT DETECTED (Referenc e Range for this test is Not Detected) 05/09/2024 12:54 PM EDUCATION FACULTY MEMBER [facility] Comment:This test was perfor med by a Reverse Rail Switchman PCR Method. Other NASOPHARYNGEAL SWAB / Unknown Non-Phlebotomy Collection / Unknown 05/09/2024 11:41 AM EDUCATION FACULTY MEMBER 05/09/2024 12:08 PM EDUCATION FACULTY MEMBER Tristin Hou MD MICROBIOLOGY - GENERAL ORDERABLE S Final Result Performing Organization Address City/[facility]/ZIP Co de Phone Number [facility] [address] [place] [address] * (ABNORMAL) CBC WITH AUTO DIFFERENTIAL (05/09/2024 11:41 AM EDUCATION FACULTY MEMBER) Pathologist [facility] WBC 4.16 4.00 - 12.00 10(3)/mcL 05/09/2024 12:24 PM EDUCATION FACULTY MEMBER [facility] RBC 4.41 3.80 - 5.30 10(6)/mcL 05/09/2024 12:24 PM EDUCATION FACULTY MEMBER [facility] HEMOGLOBIN (HGB) 14.0 12.0 - 15.8 g/dL 05/09/2024 12:24 PM EDUCATION FACULTY MEMBER [facility] HEMATOCRIT (HCT) 40.3 36.0 - 47.0 % 05/09/2024 12:24 PM EDUCATION FACULTY MEMBER [facility] MCV 91.4 82.0 - 96.0 fL 05/09/2024 12:24 PM EDUCATION FACULTY MEMBER [facility] MCH 31.7 26.0 - 34.0 pg 05/09/2024 12:24 PM EDUCATION FACULTY MEMBER [facility] MCHC 34.7 31.0 - 36.0 g/dL 05/09/2024 12:24 PM [facility] PLATELET COUNT 231 140 - 440 10(3)/[facility] 05/09/2024 12:24 PM [facility] RDW 14.6 11.8 - 15.5 % 05/09/2024 12:24 PM [facility] MPV 9.2(L) 9.7 - 12.4 fL 05/09/2024 12:24 PM [facility] NEUTROPHILS 55.2 47.0 - 73.0 % 05/09/2024 12:24 PM [facility] LYMPHOCYTES 28.6 18.0 - 42.0 % 05/09/2024 12:24 PM [facility] MONOCYTES 12.3(H) 4.0 - 12.0 % 05/09/2024 12:24 PM [facility] EOSINOPHILS 2.9 0.0 - 5.0 % 05/09/2024 12:24 PM [facility] BASOPHILS 1.0 0.0 - 1.0 % 05/09/2024 12:24 PM [facility] ABSOLUTE NEUTROPHILS 2.30 1.60 - 7.70 10(3)/mcL 05/09/2024 12:24 PM [facility] ABSOLUTE LYMPHOCYTES 1.19(L) 1.30 - 3.20 10(3)/mcL 05/09/2024 12:24 PM [facility] ABSOLUTE MONOCYTES 0.51 0.20 - 1.00 10(3)/mcL 05/09/2024 12:24 PM [facility] ABSOLUTE EOSINOPHIL 0.12 0.00 - 0.40 10(3)/[facility] 05/09/2024 12:24 PM [facility] ABSOLUTE BASOPHILS 0.04 0.00 - 0.10 10(3)/mcL 05/09/2024 12:24 PM [facility] NRBC PER 100 WBC 0 05/09/19 12:24 PM [facility] Blood Venipuncture / Unknown 05/09/2024 11:41 AM EDUCATION FACULTY MEMBER 05/09/2024 12:11 PM EDUCATION FACULTY MEMBER us Tristin Hou MD HEMATOLOGY ORDERABLES Final Resu lt [facility] [address] [place] [address] * (ABNORMAL) CMP (COMPREHENSIVE METABOLIC PANEL) (05/09/2024 11:41 AM EDUCATION FACULTY MEMBER) SODIUM 137 136 - 145 mmol/L 05/09/2024 12:47 PM [facility] POTASSIUM 4.0 3.5 - 5.1 mmol/L 05/09/2024 12:47 PM [facility] CHLORIDE 101 98 - 107 mmol/L 05/09/2024 12:47 PM [facility] CO2, VENOUS 26 22 - 30 mmol/L 05/09/2024 12:47 PM [facility] ANION GAP 14.0 <18.0 mmol/L 05/09/2024 12:47 PM [facility] GLUCOSE 71 70 - 99 mg/dL 05/09/2024 12:47 PM [facility] BUN 7(L) 10 - 20 mg/dL 05/09/2024 12:47 PM [facility] CREATININE, BLOOD 0.73 0.60 - 1.00 mg/dL 05/09/2024 12:47 PM [facility] BUN/CREATININE RATIO 10(L) 12 - 20 ratio 05/09/2024 12:47 PM [facility] TOTAL PROTEIN 7.5 6.0 - 8.0 g/dL 05/09/2024 12:47 PM [facility] ALBUMIN 4.4 3.5 - 5.0 g/dL 05/09/2024 12:47 PM [facility] A/G RATIO 1.4 1.0 - 2.2 05/09/2024 12:47 PM EDUCATION FACULTY MEMBER [facility] CALCIUM 9.3 8.7 - 10.5 mg/dL 05/09/2024 12:47 PM EDUCATION FACULTY MEMBER [facility] T BILI 0.8 0.2 - 1.2 mg/dL 05/09/2024 12:47 PM EDUCATION FACULTY MEMBER [facility] SGOT (AST) 65(H) 6 - 42 U/L 05/09/2024 12:47 PM EDUCATION FACULTY MEMBER [facility] SGPT (ALT) 45 6 - 55 U/L 05/09/2024 12:47 PM EDUCATION FACULTY MEMBER [facility] ALKALINE PHOSPHATASE 64 40 - 150 U/L 05/09/2024 12:47 PM EDUCATION FACULTY MEMBER [facility] IS THE PATIENT REQUIRED TO BE FASTING? No 05/09/2024 12:47 PM EDUCATION FACULTY MEMBER [facility] GFR, ESTIMATED >60 >=60 05/09/2024 12:47 PM [facility] Comment: Creatinine Clearance is the preferred criteria for selecting drug dose adjustments in renally impaired patients. The GFR is provided as additional pertinent clinical information. GFR is reported in mL/min/1.73 sq m. Calculation based on the Chronic Kidney Disease Epidemiology Collaboration (CKD- EPI) equation refit without adjustment for race. GFR, EST. >60 >=60 025 12:47 PM EDUCATION FACULTY MEMBER [facility] GFR, EST. NONAFRICAN >60 >=60 05/09/2024 12:47 PM EDUCATION FACULTY MEMBER [facility] Blood Venipuncture / Unknown 05/09/2024 11:41 AM EDUCATION FACULTY MEMBER 05/09/2024 12:10 PM EDUCATION FACULTY MEMBER us Tristin Hou MD CHEMISTRY ORDERABLES Final Resul t [facility] [address] [place] [address] * MIS SCREENING BILATERAL DIGITAL W CAD W WILLIAM (11/01/2023 10:45 AM CDT) Anatomical Region Laterality Modality breast Bilateral Mammography 11/01/2023 10:0 7 AM CDT Narrative 11/01/2023 3:20 PM CDT - MIS SCREENING BILATERAL DIGITAL W CAD W WILLIAM BILATERAL DIGITAL SCREENING MAMMOGRAM 3D/2D WITH CAD WITH MEDIOLATERAL OBLIQUE CRANIOCAUDAL: 11/01/2023 The study was acquired using digital technology and interpreted from soft copy. Current study was also evaluated with ICAD version 7.2. 2D digital mammographic views, as well as 3D digital tomosynthesis were performed in the CC and MLO projections. CLINICAL: Routine screening. Patient has no complaints. Previous history of left breast cancer. Mother with postmenopausal breast cancer. Right breast imaged anterior to her port. COMPARISONS: Comparison is made to exams dated: 10/28/2022, 10/27/2021, and 09/28/2020 [facility]. BREAST TISSUE:The tissue of both breasts is heterogeneously dense. This may lower the sensitivity of mammography. FINDINGS: There is a stable benign calcification in the left breast. There also are benign post operative findings in the left breast. No significant masses, calcifications, or other findings are seen in either breast. There has been no significant interval change. IMPRESSION: BI-RAD 2 BENIGN There is no mammographic evidence of malignancy. A 1 year screening mammogram is recommended. A letter will be sent to the patient with these results. The patient will be entered into a reminder system with a target due date of 1 year for her next screening exam. Electronically signed by: Nereyda goldberg/cameron:11/01/2023 12:48:06 Medical Imaging Specialist(s): RT Kami(R)(M), [facility] letter sent: Normal Exam Reading location: [facility] BI-RADS: 2 Benign Procedure Note Nereyda Bennett MD - 11/01/2023 - MIS SCREENING BILATERAL DIGITAL W CAD W WILLIAM BILATERAL DIGITAL SCREENING MAMMOGRAM 3D/2D WITH CAD WITH MEDIOLATERAL OBLIQUE CRANIOCAUDAL: 11/01/2023 The study was acquired using digital technology and interpreted from soft copy. Current study was also evaluated with ICAD version 7.2. 2D digital mammographic views, as well as 3D digital tomosynthesis were performed in the CC and MLO projections. CLINICAL: Routine screening. Patient has no complaints. Previous history of left breast cancer. Mother with postmenopausal breast cancer. Right breast imaged anterior to her port. COMPARISONS: Comparison is made to exams dated: 10/28/2022, 10/27/2021, and 09/28/2020 [facility]. BREAST TISSUE:The tissue of both breasts is heterogeneously dense. This may lower the sensitivity of mammography. FINDINGS: There is a stable benign calcification in the left breast. There also are benign post operative findings in the left breast. No significant masses, calcifications, or other findings are seen in either breast. There has been no significant interval change. IMPRESSION: BI-RAD 2 BENIGN There is no mammographic evidence of malignancy. A 1 year screening mammogram is recommended. A letter will be sent to the patient with these results. The patient will be entered into a reminder system with a target due date of 1 year for her next screening exam. Electronically signed by: Nereyda goldberg/cameron:11/01/2023 12:48:06 Medical Imaging Specialist(s): RT Kami(R)(M), [facility] letter sent: Normal Exam Reading location: [facility] BI-RADS: 2 Benign [facility] Ileana Zarate MD IMG MAMMO ORDERABLES Fin al Result * HEPATITIS PANEL ACUTE (AHP) (10/31/2023 10:50 AM CDT) HEPATITIS A IGM ANTIBODY NON DETECTED NON DETECTED 10/31/2023 10:48 PM CDT [facility] Comment: IGM Antibodies to HAV not detected. Does not exclude early acute or recovered HAV infection. HEP B CORE AB (IGM) NON DETECTED NON DETECTED 10/31/2023 10:48 PM CDT [facility] Comment:IGM anti-HBC not det ected. Does not exclude the possibility of exposure to or infection with HBV. HEPATITIS B SURFACE ANTIGEN NON DETECTED NON DETECTED 10/31/2023 10:48 PM CDT [facility] Comment:A nonreactive test r esult does not exclude the possibility of exposure to or infection with Hepatitis B virus. A nonreactive test result in individuals with prior exposure to hepatitis B may be due to antigen levels below the detection limit of this assay or lack of antigen reactivity to the antibodies in this assay. hepatitis C antibody 0.08 <1 S/CO 10/31/2023 10:48 PM CDT [facility] Comment: Signal/Cutoff ratio < 0.79 is Nondetected Signal/Cutoff ratio 0.80-0.99 is Grayzone Signal/Cutoff ratio > 0.99 is Detected Supplemental assays are recommended if signal/cutoff ratio is >/=1.00. Signal/cutoff ratio result >/= 5.00 is 97% predictive of positivity for recombinant immunoblot assay (RIBA) and will be reported to the [place] Department [employer] Public [employer] as required. Blood Sub-Q Port Venou s Access Device (Medi-Port, Implanted Port) / Unknown 10/31/2023 10:50 AM CDT 10/31/2023 10:50 AM CDT us Patrice Brand MD HEMATOLOGY ORDERABLES Fin al Result [facility] [address] [place] [address], [place] * CT CHEST SCREENING WO (08/11/2022 11:30 AM CDT) Anatomical Region Laterality Modality Chest N/A Computed Tomogra phy 08/11/2022 7:54 PM CDT Impressions 08/11/2022 7:57 PM CDT IMPRESSION: 1. Mild pulmonary emphysema, upper lobe predominant. Minimal pleuroparenchymal scarring in the apices. 2. Scattered tiny bilateral pulmonary nodules. No suspicious nodularity. 3. Bronchial wall thickening as can be seen with chronic bronchitis in current smokers. 4. Changes within the superior aspect of the left breast which may represent post lumpectomy changes. Would be sure patient is up-to-date with mammography. Lung-RADS v1.1 category 2S: Benign appearance or behavior. Finding other than a pulmonary nodule which is potentially clinically significant. Recommendation: Low dose Screening CT of chest in 12 months. See additional recommendations above Narrative 08/11/2022 7:57 PM CDT EXAM DESCRIPTION: CT CHEST SCREENING WO REASON FOR STUDY: Screening CT of the chest in a current smoker with a 31 pack year smoking history. Additional history: History of breast carcinoma status post lumpectomy. TECHNIQUE: Low dose CT scan of the chest was performed without intravenous contrast using helical scanning technique. The exam extends from the lung apices through the lung bases. Automatic exposure control was used as a dose optimization technique. NOTE: This study was performed for the specific purposes of lung cancer screening and is not an alternative to diagnostic chest CT. RADIATION DOSE: CT dose index volume (CTDIvol) = 2.96 mGy COMPARISON: None FINDINGS: SMOKING RELATED LUNG DISEASE: There is a background of mild pulmonary emphysema, upper lobe predominant. There is minimal pleuroparenchymal scarring within the lung apices. LUNG NODULES: 3 mm nodule posteroinferior right middle lobe, image 201. There is a 3.5 mm juxtapleural nodule anterior left upper lobe image 83. Additional tiny sub 4 mm noncalcified pulmonary nodules are present bilaterally. CORONARY ARTERY CALCIFICATION: None OTHER: There is no pneumonic consolidation. There is mild bronchial wall thickening, as can be seen in the setting of chronic bronchitis in current smokers. There is no effusion or pneumothorax. The thyroid gland is unremarkable. There are scattered mediastinal nodes, subcentimeter in short axis dimension. The esophagus is unremarkable. The heart is normal in size without pericardial effusion. The thoracic aorta is normal in caliber. Mild atherosclerotic calcifications are present. There is no axillary lymphadenopathy. Probable postsurgical changes in the superior aspect of the left breast. Would ensure patient is up-to-date with mammography. No significant incidental findings in the upper abdomen within the limitations of this low-dose study. Cervical and thoracic spondylosis. Degenerative disc disease is greatest in the lower cervical spine. Keitmv-C-Rfke catheter is noted in the right anterior chest wall. Distal tip overlies the SVC. THIS IS AN ELECTRONICALLY VERIFIED FINAL REPORT 08/11/2022 7:54 PM - Electronically signed by Helen Perry M.D. TW: TW Report ID: [id number] Reading Location: [place] [address] Procedure Note Helen Perry MD - 08/11/2022 EXAM DESCRIPTION: CT CHEST SCREENING WO REASON FOR STUDY: Screening CT of the chest in a current smoker with a 31 pack year smoking history. Additional history: History of breast carcinoma status post lumpectomy. TECHNIQUE: Low dose CT scan of the chest was performed without intravenous contrast using helical scanning technique. The exam extends from the lung apices through the lung bases. Automatic exposure control was used as a dose optimization technique. NOTE: This study was performed for the specific purposes of lung cancer screening and is not an alternative to diagnostic chest CT. RADIATION DOSE: CT dose index volume (CTDIvol) = 2.96 mGy COMPARISON: None FINDINGS: SMOKING RELATED LUNG DISEASE: There is a background of mild pulmonary emphysema, upper lobe predominant. There is minimal pleuroparenchymal scarring within the lung apices. LUNG NODULES: 3 mm nodule posteroinferior right middle lobe, image 201. There is a 3.5 mm juxtapleural nodule anterior left upper lobe image 83. Additional tiny sub 4 mm noncalcified pulmonary nodules are present bilaterally. CORONARY ARTERY CALCIFICATION: None OTHER: There is no pneumonic consolidation. There is mild bronchial wall thickening, as can be seen in the setting of chronic bronchitis in current smokers. There is no effusion or pneumothorax. The thyroid gland is unremarkable. There are scattered mediastinal nodes, subcentimeter in short axis dimension. The esophagus is unremarkable. The heart is normal in size without pericardial effusion. The thoracic aorta is normal in caliber. Mild atherosclerotic calcifications are present. There is no axillary lymphadenopathy. Probable postsurgical changes in the superior aspect of the left breast. Would ensure patient is up-to-date with mammography. No significant incidental findings in the upper abdomen within the limitations of this low-dose study. Cervical and thoracic spondylosis. Degenerative disc disease is greatest in the lower cervical spine. Xbqoyq-O-Mmmk catheter is noted in the right anterior chest wall. Distal tip overlies the SVC. THIS IS AN ELECTRONICALLY VERIFIED FINAL REPORT 08/11/2022 7:54 PM - Electronically signed by Helen Perry M.D. TW: KARLA Report ID: [id number] Reading Location: [place] [address] IMPRESSION: 1. Mild pulmonary emphysema, upper lobe predominant. Minimal pleuroparenchymal scarring in the apices. 2. Scattered tiny bilateral pulmonary nodules. No suspicious nodularity. 3. Bronchial wall thickening as can be seen with chronic bronchitis in current smokers. 4. Changes within the superior aspect of the left breast which may represent post lumpectomy changes. Would be sure patient is up-to-date with mammography. Lung-RADS v1.1 category 2S: Benign appearance or behavior. Finding other than a pulmonary nodule which is potentially clinically significant. Recommendation: Low dose Screening CT of chest in 12 months. See additional recommendations above Mac Zarate MD IM CT ORDERABLES Final Result * PATHOLOGY CYTOLOGY RN CHILD (03/22/2021 12:05 PM EDUCATION FACULTY MEMBER) SPECIMEN ADEQUACY Satisfactory for evaluation. Endocervical/transf ormation zone component is present. 04/01/2021 7:34 AM [facility] DESCRIPTIVE DIAGNOSIS NEGATIVE FOR INTRAEPITHELIAL LESIONS OR MALIGNANCY. 04/01/2021 7:34 AM [facility] at 0734 EDUCATION FACULTY MEMBER HPV Reflex if ASCUS? Yes 04/01/2021 7:34 AM [facility] Automated Examination Analysis of this sample has been assisted by an automated imaging and review system ([employer], [employer], [place], [place]). This case is further evaluated and finalized by a corporate legal secretary and/or pathologist. 04/01/2021 7:34 AM [facility] Disclaimer The PAP smear is a screening test designed to detect cancerous or precancerous cells of the uterine cervix. It is one of the best means available for detection of cervical cancer but still carries an inherent false-negative rate. The consequences of a false-negative PAP result can be minimized by adhering to current screening guidelines. The following are general guidelines recommended by the ACS, ASCP, ASCCP, and ACOG: PAP testing is recommended every three years for women 21-29, Co-Testing , a PAP test in conjunction with an HPV (Human Papillomavirus) test for women ages 30-65, and no PAP or HPV testing for women under the age of 21 or older than 65 unless clinically indicated. 04/01/2021 7:34 AM [facility] Other CERVIX UTERI STRUCTURE / Unknown Non-Phlebotomy Collection / Unknown 03/22/2021 12:05 PM EDUCATION FACULTY MEMBER 03/22/2021 12:05 PM EDUCATION FACULTY MEMBER us Ale Romano APRN, MALLORY PATHOLOGY/CYTOLOGY O RDERABLES Final Result [facility] [address] [facility] [place] [address], from Last 3 Months or Most Recently Relevant to Health Maintenance [place] [address] [place] [address] Care Teams Community Integration Specialist Relationship Specialty Start Date End Date Patrice Brand MD #[address] [address] PCP - General Family Medicine 08/17/23 Slava Robles MD Obstetrics & Gynecology 08/16/16 Mac Zarate MD Consulting Physician Hematology 04/18/18 Ander Ford MD Consulting Physician Radiation Oncology 04/24/18 Charlie Perea MD [address] [facility] [address] [place] [address] Consulting Physician Otolaryngology 02/13/20 Ajit Kinsey MD #2 [facility] [address] [place] [address] Consulting Physician Urology 11/29/23 Juanito Pearson MD #2 [facility] [address] [place] [address] Consulting Physician Colon and Rectal Surgery 01/10/24
--- OUTSIDE RECORDS SUMMARY | 2024-08-07 10:38 | XMS_ITS | Encounter Summary ---
Author Organization [facility] Address [address] [place] [address] Phone Care Team Providers Care Wheat Buyer Name Role Phone Slava Robles MD Unavailable [phone] Mac Zarate MD Unavailable [phone] Ander Ford MD Unavailable [phone] Charlie Perea MD Unavailable [phone] Lit Webb MD Primary Care Provider [phone] Patrice Brand MD Primary Care Provider [phone] Ajit Kinsey MD Unavailable Juanito Pearson MD Unavailable Reason for Visit * Reason Comments Medication Refill Encounter Details Date Type Department Care Team (Late st Contact Info) Description 07/31/2023 Refill [facility] #2 [place] [id number] Patrice Brand MD #[address] [address] Medication Refill Social History Tobacco Use Types Packs/Day Years Used Date Smoking Tobacco: Every Day Cigarettes 0.5 35.9 Started: 09/29/1988 Smokeless Tobacco: Never Comments:Declined counseling . Alcohol Use Standard Drinks/Week Comments Yes 42 (1 standard drink = 0.6 oz pu re alcohol) 6-pack of beer daily. [facility] Utilities Answer Date Recorded In the past 12 months has th e electric, gas, oil, or water company threatened to shut off services in your [...] 04/04/2023 How often do you attend chur ch or church services? Never 04/04/2023 Do you belong to any clubs o r organizations such as synagogue groups, unions, fraternal or athletic groups, or [...] Recorded Total Score - Questions 1-9 0 06/16 [facility] [place] of Occupat ional Health - Occupational Stress [...] place to sleep or slept in a long term (including now)? No 04/04/2023 Sexually Active Control Partners Comments Not Currently Male Comments No Sex and Gender Information Value Date Recorded Sex Assigned at Not on file Legal Sex Female 2:27 PM CDT Gender Identity Not on file Sexual Orientation Not on file Occupation Industry Job Start Date Job End Date unemployed Not on file Not on file Not on file documented as of this encounter Miscellaneous Notes * Telephone Encounter - Sheri Foote RN - 07/31/2023 11:31 AM CDT Medication(s) refilled and signed per [facility] Chronic Medication Refill Standing Order for Pediatricand Adult Patients. Requested Prescriptions Pending Prescriptions Disp Refills pantoprazole (PROTONIX) 40 MG Tablet Delayed Response [Pharmacy Med Name: PANTOPRAZOLE SOD DR 40 MGTAB] 30 Tablet 0 Sig: TAKE 1 TABLET BY MOUTH EVERY DAY Proton Pump Inhibitors Protocol Passed - 07/31/2023 1:15 AM Passed - No positive test in the past 12 months or most recent test was negative Passed - Visit with relevant provider in past 12 months or upcoming 90 days Recent Visits Date Type Provider Dept 06/28/23 Office Visit Patrice Brand MD [facility] 04/06/23 Office Visit Lit Webb MD [facility] 12/02/22 Office Visit Lit Webb MD [facility] Showing recent visits within past 365 days and meeting all other requirements Future Appointments Date Type Provider Dept 08/11/23 Appointment Lit Webb MD [facility] Showing future appointments within next 90 days and meeting all other requirements Passed - No active on record documented in this encounter Plan of Treatment Upcoming Encounters Date Type Department Care Team (Late st Contact Info) Description 09/13/2024 1:30 PM CDT Office Visit [facility] Medical Group - Obstetrics & Gynecology [facility] #2 [place] [address] Katja Galan, HOTEL MANAGER, PONY WORKER #2 [place] [address] 09/23/2024 9:30 AM CDT Clinical Support [facility] [address] [place] [address] Mac Zarate MD 0 [place] [address] Discharge Disposition: Discharged to home or Selfcare 10/09/2024 10:00 AM CDT Clinical Support [facility] [address] [place] [address] Mac Zarate MD [address] [place] [address] Discharge Disposition: Discharged to home or Selfcare 10/09/2024 11:00 AM CDT Office Visit [facility] Neurology [facility] #2 [place] [address] Oh De Oliveira MD #2 [place] [address] 11/18/2024 9:30 AM CDT Clinical Support [facility] [address] [place] [address] Mac Zarate MD [address] [place] [address] Discharge Disposition: Discharged to home or Selfcare 12/12/2024 10:45 AM CDT Office Visit [facility] #2 [place] [address] Patrice Brand MD #[address] [address] 01/13/2025 9:30 AM CDT Clinical Support [facility] [address] [place] [address] Mac Zarate MD 0 [place] [address] Discharge Disposition: Discharged to home or Selfcare 04/01/2025 9:30 AM PRODUCT DEVELOPMENT COORDINATOR Clinical Support [facility] [address] [place] [address] Mac Zarate MD 0 [place] [address] Discharge Disposition: Discharged to home or Selfcare 04/09/2025 11:15 AM PRODUCT DEVELOPMENT COORDINATOR Office Visit [facility] [address] [place] [phone] Mac Zarate MD [address] [place] [address] Ramona Honeycutt, HOTEL MANAGER, PONY WORKER [address] [place] [address] Discharge Disposition: Discharged to home or Selfcare 04/09/2025 11:30 AM PRODUCT DEVELOPMENT COORDINATOR Clinical Support [facility] [address] [place] [phone] Discharge Disposition: Discharged to home or Selfcare 09/23/2025 10:00 AM CDT Office Visit [facility] [address] [place] [address] Ander Ford MD [address] [place] [address] Discharge Disposition: Discharged to home or Selfcare documented as of this encounter Visit Diagnoses Not on filedocumented in this encounter Additional Health Concerns Infection Onset Date Last Indicated Resolved Time COVID - 19 05/09/2024 05/09/2024 05/09/2024 12:5 4 PM PRODUCT DEVELOPMENT COORDINATOR Assessment Noted Time PHQ-9 Depression Total Score: 0 11/11/19 21 10:00 AM CDT documented as of this encounter Care Teams Wheat Buyer Relationship Specialty Start Date End Date Lit Webb MD [address] [place] [address] PCP - General Family Medicine 12/24/21 08/16/23 Patrice Brand MD [address] [place] [address] [address] PCP - General Family Medicine 08/17/23 Slava Robles MD Obstetrics & Gynecology 08/16/16 Mac Zarate MD Consulting Physician Hematology 04/18/18 Ander Ford MD Consulting Physician Radiation Oncology 04/24/18 Charlie Perea MD [address] [place] [address] Consulting Physician Otolaryngology 02/13/20 Ajit Kinsey MD #2 [facility] [address] [place] [address] Consulting Physician Urology 11/29/23 Juanito Pearson MD #2 [address] [address] [place] [address] Consulting Physician Colon and Rectal Surgery 01/10/24 documented as of this encounter
--- OUTSIDE RECORDS SUMMARY | 2024-08-07 10:38 | XMS_ITS | Encounter Summary ---
Author Organization [facility] Address [address] [place] [address] Phone Care Team Providers Care Embedded Systems Software Engineer Name Role Phone Slava Robles MD Unavailable Noah Menard MD Primary Care Provider [phone] Mac Zarate MD Unavailable [phone] Ander Ford MD Unavailable [phone] Milly Costa MD Unavailable [phone] Charlie Perea MD Unavailable [phone] Jaycee Lisa APRN, NITROGLYCERIN NITRATOR OPERATOR BATCH Unavailable [phone] Lit Webb MD Primary Care Provider [phone] Patrice Brand MD Primary Care Provider [phone] Ajit Kinsey MD Unavailable Juanito Pearson MD Unavailable Reason for Visit * Reason Comments Medication Refill Encounter Details Date Type Department Care Team (Late st Contact Info) Description 11/26/2019 Refill [facility] Family [facility] #2 [place] [phone] Noah Menard MD #[address] [address] Medication Refill Social History Tobacco Use Types Packs/Day Years Used Date Smoking Tobacco: Every Day Cigarettes 1 35.9 Started: 09/29/1988 Smokeless Tobacco: Never Comments:Declined counseling . Alcohol Use Standard Drinks/Week Comments Yes 0 (1 standard drink = 0.6 oz pur e alcohol) 6-pack of beer daily. PHQ-2 Answer Date Recorded PHQ-2 Score 0 12/18/2018 Sexually Active Control Partners Comments Not Currently [...] have Coronavirus / COVID-19? No / Unsure 10/29/2019 11:24 AM CDT documented as of this encounter Miscellaneous Notes * Telephone Encounter - Noah Menard MD - 11/28/2019 2:48 PM CDT Prescription pending signature * Telephone Encounter - Genet Delgado RN - 11/28/2019 2:38 PM CDT 2 months ago (09/18/2019) traMADol (ULTRAM) 50 MG Tablet Take 1-2 Tabs by mouth every 8 hours as needed for Moderate or more severe pain. Dispense: 180 Tab? Refills: 0? Start: 09/18/2019? By: Noah Menard MD ? Encounter documented in this encounter Plan of Treatment Upcoming Encounters Date Type Department Care Team (Late st Contact Info) Description 09/13/2024 1:30 PM CDT Office Visit [facility] - Obstetrics & Gynecology - [place] #2 [place] [address] Katja Galan, DINING ROOM HOSTESS, NITROGLYCERIN NITRATOR OPERATOR BATCH #2 [place] [address] 09/23/2024 9:30 AM CDT Clinical Support [facility] Oncology Services [address] [place] [address] Mac Zarate MD [address] [place] [address] Discharge Disposition: Discharged to home or Selfcare 10/09/2024 10:00 AM CDT Clinical Support [facility] [address] [place] [address] Mac Zarate MD 0 [place] [address] Discharge Disposition: Discharged to home or Selfcare 10/09/2024 11:00 AM CDT Office Visit [facility] Neurology [facility] #2 [place] [address] Oh De Oliveira MD #2 [place] [address] 11/18/2024 9:30 AM CDT Clinical Support [facility] [address] [place] [address] Mac Zarate MD 0 [place] [address] Discharge Disposition: Discharged to home or Selfcare 12/12/2024 10:45 AM CDT Office Visit [facility] Medical [facility] - Family Medicine [facility] #2 [facility] [place] [address] Patrice Brand MD #[address] [address] 01/13/2025 9:30 AM CDT Clinical Support [facility] [address] [place] [address] Mac Zarate MD [address] [place] [address] Discharge Disposition: Discharged to home or Selfcare 04/01/2025 9:30 AM DISPATCHER SERVICE Clinical Support [facility] [address] [place] [address] Mac Zarate MD [address] [place] [address] Discharge Disposition: Discharged to home or Selfcare 04/09/2025 11:15 AM DISPATCHER SERVICE Office Visit [facility] [address] [place] [phone] Mac Zarate MD [address] [place] [address] Ramona Honeycutt, DINING ROOM HOSTESS, NITROGLYCERIN NITRATOR OPERATOR BATCH [address] [place] [address] Discharge Disposition: Discharged to home or Selfcare 04/09/2025 11:30 AM DISPATCHER SERVICE Clinical Support [facility] [address] [place] [phone] Discharge Disposition: Discharged to home or Selfcare 09/23/2025 10:00 AM CDT Office Visit [facility] [address] [place] [address] Ander Ford MD [address] [place] [address] Discharge Disposition: Discharged to home or Selfcare [...] 19 05/09/2024 05/09/2024 05/09/2024 12:5 4 PM DISPATCHER SERVICE Assessment Noted Time PHQ-9 Depression Total Score: 0 09/18/19 20 10:30 AM CDT documented as of this encounter Care Teams Embedded Systems Software Engineer Relationship Specialty Start Date End Date Noah Menard MD #[address] [address] PCP - General Family Medicine 07/10/17 12/23/21 Lit Webb MD #1 [place] [address] PCP - General Family Medicine 12/24/21 08/16/23 Patrice Brand MD #[address] [address] PCP - General Family Medicine 08/17/23 Slava Robles MD Obstetrics & Gynecology 08/16/16 Mac Zarate MD #2 [facility] [address] [place] [address] Consulting Physician Hematology 04/18/18 Ander Ford MD #2 [facility] [address] [place] [address] Consulting Physician Radiation Oncology 04/24/18 Milly Costa MD #2 [facility] [address] [place] [address] Consulting Physician Urology 04/25/18 02/16/21 Charlie Perea MD [address] [place] [address] Consulting Physician Otolaryngology 02/13/20 Jaycee Lisa, RADHA, NITROGLYCERIN NITRATOR OPERATOR BATCH [address] [place] [address] Nurse Practitioner Medical Oncology 08/13/20 04/12/22 Ajit Kinsey MD #2 [facility] [address] [place] [address] Consulting Physician Urology 11/29/23 Juanito Pearson MD #2 [facility] [address] [place] [address] Consulting Physician Colon and Rectal Surgery 01/10/24 documented as of this encounter
--- OUTSIDE RECORDS SUMMARY | 2024-08-07 10:38 | XMS_ITS | Encounter Summary ---
Author Organization [facility] Address [address] [place] [address] Phone Care Team Providers Care Firer Marine Name Role Phone Slava Robles MD Unavailable [phone] Mac Zarate MD Unavailable Ander Ford MD Unavailable [phone] Charlie Perea MD Unavailable [phone] Patrice Brand MD Primary Care Provider Ajit Kinsey MD Unavailable Juanito Pearson MD Unavailable Encounter Details Date Type Department Care Team (Late st Contact Info) Description 08/06/2024 Telephone [facility] Family Medicine [facility] #2 [place] [address] Patrice Brand MD #[address] [address] Social History Tobacco Use Types Packs/Day Years Used Date Smoking Tobacco: Every Day Cigarettes 1 35.9 Started: 09/29/1988 Smokeless Tobacco: Never Comments:Declined counseling . Alcohol Use Standard Drinks/Week Comments Yes 30 (1 standard drink = 0.6 oz pure alcohol) states she starting drinking after her daughter . [facility] Utilities Answer Date Recorded In the [...] often do you attend chur ch or scientology services? Never 04/04/2023 Do you belong to any clubs o r organizations such as rastafari groups, unions, fraternal or athletic groups, or [...] Total Score - Questions 1-9 0 07/17 [facility] [place] of Occupat ional Health - Occupational Stress [...] on file documented as of this encounter Functional Status * Question Answer Date of Assessment Author Little interest or pleasure in doing things Not at all 08/06/2024 10:42 AM CDT Feli Roque MA Feeling down, depressed, or hopeless Not at all 08/06/2024 10:42 AM CDT Feli Roque MA * Over the past 2 weeks, how often have you been bothered by any of the following problems? Question Answer Date of Assessment Author Patient Health Questionnaire -2 Score 0 08/06/2024 10:42 AM ELSIET Feli Roque MA documented as of this encounter Miscellaneous Notes * Telephone Encounter - Patrice Brand MD - 08/06/2024 3:14 PM CDT Remind her that her blood pressure was low in the office today and she is on Clonidine for sleep. Clonidine is also a BP medication, and this may be causing her BP to get too low and contributing to her dizziness. Tell her to check her BP / pulse at home daily and see her in your nurse clinic in 2 weeks for BP check and review of her home readings. Make sure she has a BP cuff. If not, order her one. Thanks! documented in this encounter Plan of Treatment Upcoming Encounters Date Type Department Care Team (Late st Contact Info) Description 09/13/2024 1:30 PM CDT Office Visit [facility] - Obstetrics & Gynecology [facility] #2 [place] [address] Katja Galan APRN, SCHEDULING COORDINATOR #2 [place] [address] 09/23/2024 9:30 AM CDT Clinical Support [facility] [place] [facility] Services [address] [place] [address] Mac Zarate MD [address] [place] [address] Discharge Disposition: Discharged to home or Selfcare 10/09/2024 10:00 AM CDT Clinical Support [facility] [address] [place] [address] Mac Zarate MD 0 [place] [address] Discharge Disposition: Discharged to home or Selfcare 10/09/2024 11:00 AM CDT Office Visit [facility] [place] [place] - Neurology - [place] #2 [place] [address] Oh De Oliveira MD #2 [place] [address] 11/18/2024 9:30 AM CDT Clinical Support [facility] Oncology Services [address] [place] [address] Mac Zarate MD [address] [place] [address] Discharge Disposition: Discharged to home or Selfcare 12/12/2024 10:45 AM CDT Office Visit [facility] Medical [facility] #2 [place] [address] Patirce Brand MD #[address] [address] 01/13/2025 9:30 AM CDT Clinical Support [facility] Oncology Services [address] [place] [address] Mac Zarate MD 0 [place] [address] Discharge Disposition: Discharged to home or Selfcare 04/01/2025 9:30 AM INFORMATION SECURITY ARCHITECT Clinical Support [facility] Oncology Services [address] [place] [address] Mac Zarate MD 0 [place] [address] Discharge Disposition: Discharged to home or Selfcare 04/09/2025 11:15 AM INFORMATION SECURITY ARCHITECT Office Visit [facility] Oncology Services [address] [place] [address] Mac Zarate MD [address] [place] [address] Ramona Honeycutt APRN, SCHEDULING COORDINATOR [address] [place] [address] Discharge Disposition: Discharged to home or Selfcare 04/09/2025 11:30 AM INFORMATION SECURITY ARCHITECT Clinical Support [facility] Oncology Services [address] [place] [phone] Discharge Disposition: Discharged to home or Selfcare 09/23/2025 10:00 AM CDT Office Visit [facility] Services [address] [place] [address] Ander Ford MD [address] [place] [address] Discharge Disposition: Discharged to home or Selfcare documented as of this encounter Visit Diagnoses Not on filedocumented in this encounter Additional Health Concerns Assessment Noted Time PHQ-9 Depression Total Score: 0 08/07/19 25 10:42 AM CDT documented as of this encounter Care Teams Firer Marine Relationship Specialty Start Date End Date Patrice Brand MD #[address] [address] PCP - General Family Medicine 08/17/23 Slava Robles MD Obstetrics & Gynecology 08/16/16 Mac Zarate MD Consulting Physician Hematology 04/18/18 Ander Ford MD Consulting Physician Radiation Oncology 04/24/18 Charlie Perea MD [address] [place] [address] Consulting Physician Otolaryngology 02/13/20 Ajit Kinsey MD #2 [facility] [address] [place] [address] Consulting Physician Urology 11/29/23 Juanito Pearson MD #2 [facility] [address] [place] [address] Consulting Physician Colon and Rectal Surgery 01/10/24 documented as of this encounter
--- OUTSIDE RECORDS SUMMARY | 2024-08-07 10:38 | XMS_ITS | Clinical Summary ---
Author Organization [facility] Address [address] [place] [address] Care Team Providers Care Shelter Advocate Name Role Phone Slava Robles MD Unavailable [phone] Vladimir Tobar MD Unavailable [phone] Jose Vora MD Primary Care Provider [phone] Source Comments [facility],non-owned Affiliates and Associated Physician Practices is amultiple site organization consisting of ambulatory clinics and hospital sitesin [place] and [place]. This disclosure is being madepursuant to the Care Everywhere program and may not contain all information available regarding this patient. Last updated 18.[facility] [employer] Allergies No known active allergies Medications * Be aware that medications may not be up to date on this document. Alwaysverify current medications with the patient. traMADol (ULTRAM) 50 MG tabletIndication s:Hand pain, unspecified laterality Take 1-2 Tabs by mouth 3 times daily as needed for Pain. With OTC tylenol 180 Tab 6 01/31/2014 Active lisinopril-hydro chlorothiazide (PRINZIDE; ZESTORETIC) 10-12.5 MG tablet Take 1 Tab by mouth once daily 30 Tab 5 05/18/2015 Active diazePAM (VALIUM) 2 MG tablet 1 Tab 4 times daily 120 Tab 4 02/03/2016 Active Active Problems Problem Noted Date Diagnosed Date Arthritis 09/29/2015 Vertigo 09/29/2015 Screening for cholesterol level 09/29/2015 Precordial pain 05/18/2015 Arm pain 08/25/2009 Overview (08/25/2009): She has pain on the volar forearm above the thumb on the left. Edie in negative NCS left arm negative motor sensory and F-mode left median nerve. 08/25/2009 will try NSAID and work station adjustment Screening for condition 07/07/2008 Overview (01/15/2015): Adult Abstraction Problem List Screening Pap Smear: Result: Negative Date: 03/24/2008 Immunizations Immunization Administration Dates Next Due FLU VACCINE QUAD IIV4 PF ID 02/03/2016 INFLUENZA VACCINE 01/24/2014,01/14/2013,01/20/20 12 PPD 01/20/2012 Family History Medical History Relation Name Comments Arthritis - Osteo Father Cancer Father liver and gall bladder CAD (Coronary Artery Disease) Maternal Grandfather Cancer Maternal Grandfather stomach Diabetes Maternal Grandfather Diabetes Maternal Grandmother Heart Disease Maternal Grandmother Arthritis - Osteo Mother Cancer Mother breast Cancer Paternal Grandfather Relation Name Status Comments Father Maternal Grandfather Maternal Grandmother Mother Paternal Grandfather Social History Tobacco Use Types Packs/Day Years Used Date Smoking Tobacco: Former Cigarettes 1 28.2 1 - 04/17/2015 Smokeless Tobacco: Never Tobacco Cessation:Counseling Given: No Comments:vapor only e cig Alcohol Use Standard Drinks/Week Comments Yes 0 (1 standard drink = 0.6 oz pur e alcohol) OCCASIONALLY Comments No Sex and Gender Information Value Date Recorded Sex Assigned at Not on file Legal Sex Female 6:59 AM CREDIT BALANCE SPECIALIST Gender Identity Not on file Sexual Orientation Not on file 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 Not on file Not on file Last Filed Vital Signs Vital Sign Reading Time Taken Comments Blood Pressure 123/86 02/03/2016 10:57 AM CDT Pulse 85 02/03/2016 10:57 AM CDT Temperature - - Respiratory Rate 12 06/10/2013 9:49 AM CREDIT BALANCE SPECIALIST Oxygen Saturation - - Inhaled Oxygen Concentration - - Weight 60.3 kg (133 lb) 02/03/2016 10:57 AM CDT Height 167.6 cm (5' 6 ) 02/03/2016 10:57 AM CDT Body Mass Index 21.47 02/03/2016 10:57 AM CDT Plan of Treatment Health Maintenance Due Date Last Done Comments COLOGUARD (AGES 45-75) - COLON CA SCREENING 1970 COLON MONITORING 1970 COLONOSCOPY - COLON CA SCREENING 1970 CT COLONOGRAPHY - COLON CA SCREENING 1970 Colorectal Cancer Screening 1970 FIT - COLON CA SCREENING 1970 FLEX SIG - COLON CA SCREENING 1970 DTAP/TDAP/TD VACCINES (1 - Tdap) 1989 HEPATITIS B VACCINE (1 of 3 - 19+ 3-dose series) 1989 MAMMOGRAM 02/06/2016 02/05/2014, 07/16, 05/10/2011 PAP SMEAR 06/10/2016 06/10/2013, 05/19, 11/18/2008, Additional history exists PNEUMOCOCCAL VACCINE 50+ (1 of 1 - PCV) 2020 ZOSTER VACCINE (1 of 2) 2020 LIPID TESTING 09/28/2020 09/29/2015 COVID-19 VACCINE ( - season) 2023 DEPRESSION SCREENING 04/17/2024 INFLUENZA VACCINE (Season Ended) 2024 02/03/2016, 01/24/2014, 01/14/2013, Additional history exists HIV SCREENING Completed 03/24/2008 HEPATITIS C SCREENING Completed 01/31/2014 HIB VACCINE Aged Out No longer eligi ble based on patient's age to complete this topic HPV VACCINE Aged Out No longer eligi ble based on patient's age to complete this topic MENINGOCOCCAL (Group B) VACCINE SHARED DECISION-MAKING Aged Out No longer eligible based on patient's age to complete this topic MENINGOCOCCAL GROUPS A/C/Y/W VACCINE Aged Out No longer eligible based on patient's age to complete this topic Goals Goal Patient Goal Type Associated Problems Recent Progress Patient-Stated? Author Blood Pressure < 140/90 Blood Pressure 123/86(2015 10:57 AM CDT) No Daniela Reddy Blood Pressure < 140/90 Blood Pressure 123/86(2015 10:57 AM CDT) No Daniela Reddy Blood Pressure < 140/90 Blood Pressure 123/86(2015 10:57 AM CDT) No Daniela Reddy Have labs drawn Lifestyle No Daniela Reddy Have labs drawn Lifestyle No Daniela Reddy Have labs drawn Lifestyle No Daniela Reddy Procedures Procedure Name Priority Date/Time Associated Diagnosis Comments LIPID PROFILE W TCHOL/HDL Routine 09/29/2015 11:25 AM CDT Screening for cholesterol level MAMMO BILAT SCREENING Routine 02/05/2014 8:14 AM CDT Other screening mammogram HEPATITIS C ANTIBODY Routine 01/31/2014 1:02 PM CDT Hand pain, unspecified laterality PAP IGP CERVICAL CANCER SCREENING Routine 06/10/2013 9:55 AM CREDIT BALANCE SPECIALIST Routine gynecological examination Special screening examination for human papillomavirus (HPV) HIV 1/0/2 ANTIBODIES W CONFIRM 03/24/2008 11:08 AM CREDIT BALANCE SPECIALIST from Last 3 Months or Most Recently Relevant to Health Maintenance Results * (ABNORMAL) LIPID PROFILE W TCHOL/HDL (PO REF LAB) (09/29/2015 11:25 AM CDT) Cholesterol 231(H) <200 mg/dL [facility] ACCOUNT BILL Triglycerides 63 <150 mg/dL [facility] ACCOUNT BILL HDL Cholesterol 118 >40 mg/dL [facility] ACCOUNT BILL VLDL Calculated 13 <=30 mg/dL [facility] ACCOUNT BILL LDL Calculated 100 <130 mg/dL [facility] ACCOUNT BILL Comment:LDL/HDL RATIO BLOOD (SSM) 0.9 <5.0 Cholesterol/HDL Ratio 2.0 <4.5 [facility] ACCOUNT BILL Blood specimen (specimen) BLOOD SPECIMEN / Unknown 09/29/2015 11:25 AM CDT 09/29/2015 3:42 PM CDT Narrative Resulting Agency Comment [facility] [address] [place] [id number] Ed Sanders MD LAB - CHEMISTRY ORDERABLES Final Result [facility] ACCOUNT BILL [address] [place] [address] * MAMMO SCREENING DIGITAL IMAGE BILAT (02/05/2014 8:14 AM CDT) Anatomical Region Laterality Modality Breast Bilateral Mammography 02/05/2014 9:08 AM CDT Narrative 02/05/2014 9:50 AM CDT DIGITAL BILATERAL SCREENING MAMMOGRAMS WITH CAD CORRELATION DATE: 02/05/14 PREVIOUS EXAM DATE: 07/25/12 INDICATION: Screening. TECHNIQUE: Bilateral craniocaudad (CC) and mediolateral oblique (MLO) views. The study was interpreted with the aid of CAD. TECHNOLOGIST: Robert Wiley, RT(R)(M) TISSUE DENSITY: Scattered fibroglandular elements. FINDINGS: There is no discrete abnormality. There is no significant interval change. A single coarse calcification is seen in the left breast. ASSESSMENT: BI-RADS category 1: Negative RECOMMENDATIONS: Followup one year. The above findings should be correlated with physical examination. A relatively nonspecific study should not preclude additional evaluation if suspicious findings are present clinically. An [employer] Certified Facility. [facility] Centers utilize [employer] as a reminder system to notify patients of their next recommended mammograms. Edited by Sruthi Ruiz on 02/05/2014 9:25 AM Jose oVra MD MAMMO ORDERABLES Final Result * HEPATITIS C ANTIBODY (01/31/2014 1:02 PM CDT) Hepatitis C Antibody <0.1 0.0 - 0.9 s/co ratio [facility] ACCOUNT BILL Comment: Negative: < 0.8 Indeterminate: 0.8 - 0.9 Positive: > 0.9 . In order to reduce the incidence of a false positive result, the CDC recommends that all s/co ratios between 1.0 and 10.9 be confirmed by a more specific supplemental or PCR testing. [facility] w/Reflex to Verification test #[id number]. Blood specimen (specimen) BLOOD SPECIMEN / Unknown 01/31/2014 1:02 PM CDT 01/31/2014 4:12 PM CDT Narrative Resulting Agency Comment [facility] [address] [phone] [place] Jack Victor MD LAB - CHEMISTRY ORDERABLES Alethea l Result [facility] [place] [address] * PAP IGP CERVICAL CANCER SCREENING (PO REF LAB) (06/10/2013 9:55 AM CREDIT BALANCE SPECIALIST) Age Gdln ACOG Testing 30-65 [facility] ACCOUNT BILL MICROSCOPIC CYTOLOGIC EXAMINATION OF SMEAR OF SPECIMEN FROM FEMALE GENITAL TRACT PREPARED USING PAPANICOLAOU TECHNIQUE / Unknown 06/10/2013 9:55 AM CREDIT BALANCE SPECIALIST 06/11/2013 3:37 AM CREDIT BALANCE SPECIALIST Narrative [facility] ACCOUNT BILL - 06/13/2013 8:25 PM CREDIT BALANCE SPECIALIST Source.............Cervical;Endocervical LMP / Prev Treat...FIB=[id number] No. of containers..01 CYTYC Thin Prep Vial Resulting Agency Comment [facility] [address] [phone] [place] Slava Robles MD LAB - PATHOLOGY/CYTOLOGY OR DERABLES Final Result Performing Organization Address City/[facility]/ZIP Co de Phone Number [facility] ACCOUNT BILL [address] [place] [address] * HIV 1/0/2 ANTIBODIES W CONFIRM (PO REF LAB) (03/24/2008 11:08 AM CREDIT BALANCE SPECIALIST) HIV-1 Antibody EIA [facility] ACCOUNT BILL HIV-1 Antibody O.D. Ratio <1.00 <1.00 [facility] ACCOUNT BILL Comment:Index Value: Specime n reactivity relative to the negative cutoff. HIV-1/HIV-2 Non Reactive Non Reactive [facility] ACCOUNT BILL 03/24/2008 11:0 8 AM CREDIT BALANCE SPECIALIST 03/24/2008 9:50 PM CREDIT BALANCE SPECIALIST Narrative Resulting Agency Comment [facility] [place] [address] [phone] us Slava Robles MD LAB - MICROBIOLOGY ORDERABL ES Final Result [facility] ACCOUNT BILL [address] [place] [address] from Last 3 Months or Most Recently Relevant to Health Maintenance Insurance [facility] Care Teams Shelter Advocate Relationship Specialty [place] [id number] [address] PCP - OBGYN 07/07/08 Jose Vora MD [facility] [place] [address] PCP - General 07/26/17 [place] [id number] [address] Neurology 01/03/11
--- OUTSIDE RECORDS SUMMARY | 2024-08-07 10:38 | XMS_ITS | Encounter Summary ---
Author Organization [facility] Address [address] [facility] [place] [address] Phone Care Team Providers Care Corner Former Name Role Phone Slava Robles MD Unavailable [phone] Mac Zarate MD Unavailable [phone] nAder Ford MD Unavailable [phone] Charlie Perea MD Unavailable [phone] Lit Webb MD Primary Care Provider [phone] Patrice Brand MD Primary Care Provider [phone] Ajit Kinsey MD Unavailable Juanito Pearson MD Unavailable Reason for Visit * Reason Comments Medication Refill Encounter Details Date Type Department Care Team (Late st Contact Info) Description 09/05[facility]20[facility] [address] [place] [address] Mac Zarate MD [address] [place] [address] Medication Refill Social History Tobacco Use Types Packs/Day Years Used Date Smoking Tobacco: Every Day Cigarettes 1 35.9 Started: 09/29/1988 Smokeless Tobacco: Never Comments:Declined counseling . Alcohol Use Standard Drinks/Week Comments Yes 42 (1 standard drink = 0.6 oz pu re alcohol) 6-pack of beer daily. PHQ-2 Answer Date Recorded Total Score - Questions 1-9 0 06/16 Sexually Active Control Partners Comments Not Currently [...] Exposure Response Date Recorded In the last 10 days, have yo u been in contact with someone who was confirmed or suspected to have Coronavirus/COVID-19? No / Unsure 08/11/2022 10:52 AM CDT documented as of this encounter Miscellaneous Notes * Telephone Encounter - Ramona Honeycutt RN - 09/06/2022 8:40 AM CDT Letrozole refilled per Dr. Zarate's note 07/19/22. documented in this encounter Plan of Treatment Upcoming Encounters Date Type Department Care Team (Late st Contact Info) Description 09/13/2024 1:30 PM CDT Office Visit [facility] - Obstetrics & Gynecology [facility] [address] [place] [address] Katja Galan, AMPHIBIOUS OPERATIONS OFFICER, STAFF DEVELOPMENT EDUCATOR [address] [place] [address] 09/23/2024 9:30 AM CDT [facility] [address] [place] [address] Mac Zarate MD [address] [place] [address] Discharge Disposition: Discharged to home or Selfcare 10/09/2024 10:00 AM CDT Clinical Support [facility] Oncology Services [address] [place] [address] Mac Zarate MD [address] [place] [address] Discharge Disposition: Discharged to home or Selfcare 10/09/2024 11:00 AM CDT Office Visit [facility] Neurology [facility] [address] [place] [address] Oh De Oliveira MD [address] [place] [address] 11/18/2024 9:30 AM CDT Clinical Support [facility] Oncology Services [address] [place] [address] Mac Zarate MD [address] [place] [address] Discharge Disposition: Discharged to home or Selfcare 12/12/2024 10:45 AM CDT Office Visit [facility] [address] [place] [address] Patrice Brand MD [address] [address] 01/13/2025 9:30 AM CDT Clinical Support [facility] Oncology Services [address] [place] [address] Mac Zarate MD [address] [place] [address] Discharge Disposition: Discharged to home or Selfcare 04/01/2025 9:30 AM POWDER SHOVELER Clinical Support [facility] Oncology Services [address] [place] [address] Mac Zarate MD [address] [place] [address] Discharge Disposition: Discharged to home or Selfcare 04/09/2025 11:15 AM POWDER SHOVELER Office Visit [facility] Oncology Services [address] [place] [address] Mac Zarate MD [address] [place] [address] Ramona Honeycutt, AMPHIBIOUS OPERATIONS OFFICER, STAFF DEVELOPMENT EDUCATOR [address] [place] [address] Discharge Disposition: Discharged to home or Selfcare 04/09/2025 11:30 AM POWDER SHOVELER Clinical Support [facility] Oncology Services [address] [place] [address] Discharge Disposition: Discharged to home or Selfcare 09/23/2025 10:00 AM CDT Office Visit [facility] Oncology Services [address] [place] [phone] Ander Ford MD [address] [place] [address] Discharge Disposition: Discharged to home or Selfcare documented as of this encounter Visit Diagnoses Not on filedocumented in this encounter Additional Health Concerns Infection Onset Date Last Indicated Resolved Time C. difficile Rule-Out 11/02/2022 11/02/20222022 12:16 AM CDT COVID - 19 05/09/2024 05/09/2024 05/09/2024 12:5 4 PM POWDER SHOVELER Assessment Noted Time PHQ-9 Depression Total Score: 0 11/11/19 10:00 AM CDT documented as of this encounter Care Teams Corner Former Relationship Specialty Start Date End Date Lit Webb MD [address] [facility] [place] [address] PCP - General Family Medicine 12/24/21 08/16/23 Patrice Brand MD [address] [facility] [address] [place] [address] PCP - General Family Medicine 08/17/23 Slava Robles MD Obstetrics & Gynecology 08/16/16 Mac Zarate MD Consulting Physician Hematology 04/18/18 Ander Ford MD Consulting Physician Radiation Oncology 04/24/18 Charlie Perea MD [address] [place] [address] Consulting Physician Otolaryngology 02/13/20 Ajit Kinsey MD [address] [facility] [address] [place] [address] Consulting Physician Urology 11/29/23 Juanito Pearson MD [address] [facility] [address] [place] [address] Consulting Physician Colon and Rectal Surgery 01/10/24 documented as of this encounter
--- OUTSIDE RECORDS SUMMARY | 2024-08-07 10:38 | XMS_ITS | Data Portability ---
Author Organization [facility], Main Office Address [address] [place] [address] Care Team Providers Care Cone Picker Name Role Phone MICHAEL EVERETT Primary Care Provider Assessment No assessment recorded. Plan of Treatment Reminders Order Date Submit Date Provider Last Modified By Organization Details Last Modified Time Details Appointments None recorded. Lab None recorded. Referral None recorded. Procedures None recorded. Surgeries None recorded. Imaging audiogram + tympanogra m 2024 025 [facility] (Audiology), [address] [place] [address], [id number], 5 12:08:42 Medication Orders mometasone 0.1 % topical cream 2023 024 [facility] [address], [address], 4 11:18:35 Ciprodex 0.3 %-0.1 % ear drops,susp ension 2023 024 [email or web address] [address], [address], 4 08:16:05 cefdinir 300 mg capsule 2023 024 [email or web address] [address], [address], 4 11:04:26 Debrox 6.5 % ear drops 2023 024 [facility] [address], [address], 4 11:13:41 Patient TargetsNo targets recorded. Patient Instructions Encounter Date Encounter Id Patient Instructions Last Modified By Organization Details Last Modified Time 02/27/2024 [id number] discussed obtaining a repeat audiogram if hearing loss continues to persist after completion of treatment. Prescribed cefdinir to be taken twice a day for 10 days for antimicrobial coverage. In addition prescribed Ciprodex twice a day for coverage. If symptoms continue to persist or worsen after completion of treatment, notify the office to be seen for re-evaluation. [email or web address] Not available 02/27/2024 15:16:13 03/11/2024 [id number] Discussed successfully instilling ear wick with Ciprodex eardrops applied. Advised to remove ear wick with tweezers in 1-2 days. Follow-up as needed Not available 03/11/2024 11:32:59 Reason for Referral None Reported. Problems Name Problem SNOMED Code Status Onset Date Resolution Date Notes Provider Name and Address Organization Details Recorded Time Dysfunction of bilateral eustachian tubes 7380837046245 100 Active 2023 Charlie Perea MD [address], [address], [place], [address], [facility] 12:51:26 Impacted cerumen in left ear 7716909590378 101 Active 2023 KENDALL Apple [address], [address], [place], [address], [facility] 4 11:12:24 Acute serous otitis media of left ear 2563711614664 101 Active 2023 KENDALL Apple [address], [address], [place], [address], [facility] 4 15:13:19 Acute suppurative otitis media 873915967 Active 2023 KENDALL Apple [address], [address], [place], [address], [employer] 4 15:14:59 Otitis media 63160653 Active 2023 Nayeli Diallo null, [facility] 4 11:10:24 Eczema of external auditory canal 68518987 Active 2023 Charlie Perea MD [address] [facility], [address], [place], [address], [facility] 4 11:18:09 Otitis externa 8282143 Active 2023 Charlie Perea MD [address] [facility], [address], [place], [address], [facility] 4 11:18:19 Hearing loss 86439004 Active 2024 Nayeli Diallo null, [facility] 5 16:57:49 Sensorineur al hearing loss 96641032 Active 2024 Gabbi Thakur RN null, [facility] 5 10:57:06 Problem Notes None recorded. Procedures Surgical History Date Name Laterality Status Provider Name and Address Organization Details Recorded Time 10/17/19 24 operation on eustachian tube completed JESSICA Tovar [facility] 10/31/2023 08:54:18 tonsillectomy and adenoidectomy completed JESSICA Tovar [facility] 09/20/2023 09:44:49 Myringotomy Tube Placement completed Gabbi Thakur RN [facility] 09/21/2023 12:34:17 Imaging Results None recorded. Procedure Notes None recorded. Medical Equipment None Reported. Allergies No known drug allergies Medications Name Sig Start Date Stop Date Status Note LastModified by Organization Details LastModified Time venlafaxin e ER 37.5 mg capsule,ex tended release 24 hr 09/19 completed Not Available Not Available Not Available clonidine HCl 0.1 mg tablet TAKE 1-2 TABLETS BY MOUTH AT BEDTIME FOR SLEEP active Not Available Not Available No t Available prednisone 10 mg tablet PLEASE SEE ATTACHED FOR DETAILED DIRECTIO NS 03/21 completed Not Available Not Available Not Available ondansetro n HCl 8 mg tablet active Not Available Not Available Not Available prochlorpe razine maleate 10 mg tablet 09/19 completed Not Available Not Available Not Available tramadol 50 mg tablet TAKE 1 TO 2 TABLETS BY MOUTH EVERY 6 HOURS NEEDED FOR MODERATE OR MORE SEVERE PAIN active Not Available Not Available No t Available ondansetro n 8 mg disintegra ting tablet TAKE 1 TABLET BY MOUTH EVERY 8 HOURS NEEDED FOR NAUSEA FIRST LINE active Not Available Not Available No t Available meloxicam 7.5 mg tablet TAKE 1 TABLET BY MOUTH EVERY DAY active Not Available Not Available No t Available amoxicilli n 875 mg tablet Take 1 tablet twice a day by oral route for 10 days. 03/21 completed Not Available Not Available Not Available diazepam 2 mg tablet TAKE 1 TABLET BY MOUTH EVERY 8 HOURS NEEDED FOR VERTIGO active Not Available Not Available No t Available levothyrox ine 50 mcg tablet TAKE 1 TABLET BY MOUTH EVERY DAY active Not Available Not Available No t Available cephalexin 500 mg capsule TAKE 1 CAPSULE BY MOUTH TWICE A DAY FOR 10 DAYS 07/25 completed Not Available Not Available Not Available pantoprazo le 40 mg tablet,del ayed release TAKE 1 TABLET BY MOUTH EVERY DAY active Not Available Not Available No t Available Ear Drops (carbamide peroxide) 6.5 % INSTILL 5 DROPS INTO AFFECTED EAR TWICE A DAY active Not Available Not Available No t Available pramipexol e 0.125 mg tablet TAKE 1 TABLET BY MOUTH DAILY NEEDED active Not Available Not Available No t Available omeprazole 20 mg capsule,de layed release 09/19 completed Not Available Not Available Not Available letrozole 2.5 mg tablet TAKE 1 TABLET BY MOUTH EVERY DAY active Not Available Not Available No t Available cefdinir 300 mg capsule TAKE 1 CAPSULE BY MOUTH EVERY 12 HOURS FOR 10 DAYS 03/11 completed Not Available Not Available Not Available tamoxifen 20 mg tablet 09/19 completed Not Available Not Available Not Available mometasone 0.1 % topical cream APPLY SPARINGL Y TO AFFECTED AREA EVERY DAY active Not Available Not Available No t Available ciprofloxa chilo 0.3 %-dexameth asone 0.1 % ear drops,susp ension INSTILL 4 DROPS INTO AFFECTED EAR(S) TWICE A DAY FOR 7 DAYS 03/21 completed Not Available Not Available Not Available solifenaci n 5 mg tablet TAKE 1 TABLET BY MOUTH EVERY DAY active Not Available Not Available No t Available Vitamin D3 active Not Available Not Av ailable Not Available Miralax PRN active Not Available Not Avail able Not Available B12 active Tablet Not Available Not Availa ble Not Available Prolia Inj. q 6 mos. active Not Available Not Available No t Available naloxone 4 mg/actuati on nasal spray PLEASE SEE ATTACHED FOR DETAILED DIRECTIO NS active Not Available Not Available No t Available Afluria Quad 60 mcg (15 mcg x 4)/0.5 mL intramuscu lar susp. 09/20 completed Not Available Not Available Not Available Afluria Qd (36 mos up)(PF)60 mcg (15 mcg x4)/0.5 mL IM syringe PHARMACY ADMINIST ERED 09/20 completed Not Available Not Available Not Available Vitals Date Recorded Body height Body mass index (BMI) Body weight Body temperature Provider Name and Address Organization Details Last Updated DateTime 12/07/2023 172.72 cm 17.9 kg/m2 93910.74 g 98.2 [degF] JESSICA Tovar [employer] [facility] 12/07/2023 10:46:04 Date Recorded Body height Body mass index (BMI) Body weight Body temperature Provider Name and Address Organization Details Last Updated DateTime 02/27/2024 172.72 cm 18.8 kg/m2 00013.3 g 97.7 [degF] Gabbi Thakur RN [employer] [facility] 02/27/2024 15:00:06 Date Recorded Body height Body mass index (BMI) Body weight Body temperature Provider Name and Address Organization Details Last Updated DateTime 03/11/2024 172.72 cm 18.7 kg/m2 43011.14 g 97.7 [degF] Gabbi Thakur RN [employer] [facility] 03/11/2024 11:07:39 Date Recorded Body height Body mass index (BMI) Body weight Body temperature Provider Name and Address Organization Details Last Updated DateTime 03/21/2024 172.72 cm 18.5 kg/m2 80276.27 g 97.8 [degF] Gabbi Thakur RN [employer] [facility] 03/21/2024 10:51:11 Date Recorded Body height Body mass index (BMI) Body weight Body temperature Provider Name and Address Organization Details Last Updated DateTime 07/25/2024 172.72 cm 18.6 kg/m2 18581.99 g 97.7 [degF] Gabbi Thakur RN [facility] 07/25/2024 10:47:31 Social History Question Answer Notes LastModified by Organizat ion Details LastModified Time Tobacco Smoking Status Current Every Day Smoker JESSICA Tovar null, [place] [employer] [facility] 09/20/2023 09:44:36 What Is Your Level Of Alcohol Consumption? None [email or web address] Information not available 09/20/2023 Sex: Unknown Functional Status None recorded. Mental Status None recorded. Family History Nothing Reported Notes:NO ENT Medical History Condition Response CANCER: SPECIFY Y GERD/NAUSEA Y DIZZINESS Y HYPOTHYROIDISM Y Gynecological HistoryNo gynecological history recorded. Obstetrics History GPAL:G 0 P 0 0 0 0 Past Encounters Encounter ID Performer Location Encounter Start Date Encounter Closed Date Diagnosis/Indication Diagnosis SNOMED-CT Code Diagnosis ICD10 Code Diagnosis Note [id number] Charlie Perea MD [facility] [place] [address] [place] [address] 09/21/2023 11:48:48 09/21/2023 15:33:33 Dysfunction of bilateral eustachian tubes 0513055464 630788 H69.93 [id number] Charlie Perea MD [facility] [place] [address] [place] [address] 11/02/2023 11:15:00 11/02/2023 15:52:14 Dysfunction of bilateral eustachian tubes 2925784139 092096 H69.93 [id number] KENDALL Apple [facility] [place] [address] [place] [address] 12/07/2023 10:40:43 12/07/2023 14:06:13 Dysfunction of bilateral eustachian tubes 9499219903 088477 H69.93 Post op bilateral eustachian tubes, intact Impacted c erumen in left ear 0886854380 231180 H61.22 Debrox to left ear twice daily [id number] KENDALL Apple [facility] [place] [address] [place] [address] 02/27/2024 14:34:30 02/27/2024 15:16:41 Acute suppurative otitis media 240508567 H66.931 [id number] KENDALL Apple [facility] [place] [address] [place] [address] 03/11/2024 10:50:07 03/11/2024 11:38:39 Acute suppurative otitis media 405680332 H66.009 ear wick placed to the left external auditory canal. Ciprodex eardrops applied without difficulti es. [id number] MD PALLAVI [facility] [place] [address] [place] [address] 03/21/2024 10:37:00 04/11/2024 10:28:26 Acute suppurative otitis media 979937197 H66.009 Otitis externa 7931928 H 60.92 Eczema of external auditory canal 10610686 H60.072 [id number] MD PALLAVI [facility] [place] [address] [place] [address] 07/25/2024 10:16:59 07/30/2024 10:39:31 Hearing loss 43596205 H91.90 Dysfunctio n of bilateral eustachian tubes 3616474224 680161 H69.93 Health Concerns Section Related Observation LastModified by Organization Detai ls LastModified Time None Recorded Concern Status LastModified by Organization Details LastModified Time None Recorded Advance Directives Directive None Recorded Payers Encounter Date Sequence Insurance Name Policy Number Policy Antonio Covered Member ID Antonio Member ID Guarantor Name 12/07/2023 1 [facility] (MEDICAID HMO) [id number] Amy Suerig [id number] Amy Sueri 02/27/2024 1 [facility] (MEDICAID HMO) [id number] Amy Suerig [id number] Amy Suerig 03/11/2024 1 [facility] (MEDICAID HMO) [id number] Amy Mcgee [id number] Amy Mcgee 03/21/2024 2 [facility] [place] [facility] Amy Mcgee [id number] Amy Mcgee 07/25/2024 1 [facility] (MEDICAID HMO) [id number] Amy Mcgee [id number] Amy Garayg Notes Date Note Type Note Provider Name and Address Organization Details Recorded Time 12/07/2023 text/html This patient has a PMH significant for vertigo, GERD, hypothyroidism, RA, carpal tunnel syndrome, and cancer who presents to the clinic today for a 1 month follow-up for difficulty hearing. She is approximately 7 weeks postoperatively for bilateral Eustachian tube dilatation with tube placement, bilaterally. States that she is able to hear appropriately on her right side but difficulty on the left side. Denies any otalgia, vertigo. KENDALL Apple [address], [address], [place], [address], [employer] 12/07/2023 11:14:58 02/27/2024 text/html This patient pre sents to the office with a complaint of left otorrhea that began on 02/22/2024. She does report intermittent fevers up to 101.1 F. she states that she has not had a fever in over 24 hours. She denies any otalgia. she reports going through approximately 6 saturated cotton balls with jefferson colored discharge. She does report associated hearing loss to the affected side. KENDALL Apple [address], [place], [address], [employer] 02/27/2024 15:16:17 03/11/2024 text/html this patient pre sents to the office for a follow-up regarding acute suppurative otitis media of the left ear. She reports that she has had copious amounts of drainage from the left ear inhibiting the placement of her Ciprodex eardrops. She presents for further management and treatment. KENDALL Apple [address], [place], [address], [employer] 03/11/2024 11:33:02 03/21/2024 text/html this patient has been treated for acute otitis media of the left ear. She reports that she has drainage from the left ear. She has been treated for Eustachian tube dysfunction Charlie Perea MD [address], [place], [address], [facility] [email or web address] [facility] 03/21/2024 11:18:54 07/25/2024 text/html this patient had and Eustachian tube balloon dilatation back in March but no reports which he describes as a train sound in both ears which is greater on the left. She is unable to be more descriptive. She did have a recent MRI scan by her radiation oncologist which was normal she has an audiogram scheduled Charlie Perea MD [address], [place], [address], [facility] [employer] [facility] [email or web address] [facility] 07/25/2024 11:01:33 OBGyn Episode No OBEpisode recorded.
--- OUTSIDE RECORDS SUMMARY | 2024-08-07 10:38 | XMS_ITS | Encounter Summary ---
Author Organization [facility] Address [address] [place] [address] Phone Care Team Providers Care Factory Helper Name Role Phone Slava Robles MD Unavailable [phone] Mac Zarate MD Unavailable [phone] Ander Ford MD Unavailable [phone] Charlie Perea MD Unavailable [phone] Patrice Brand MD Primary Care Provider [phone] Ajit Kinsey MD Unavailable Juanito Pearson MD Unavailable Reason for Referral * Consult, Test & Initiate Treatment (Less Than 2 Weeks) - Open Specialty Diagnoses / Procedures Referred By Pk t Referred To Contact Diagnoses Chronic right shoulder pain Patrice Brand MD [address] [address] Phone: tel: fax: Referral ID Status Reason Start Date Expiration Date Visits Re quested Visits Authorized [id number] Open 08/06/2024 1 1 Scheduling Instructions Amy is being referred to Dr. Tristin Hou or other specialist in patient's insurance network for R shoulder pain. See below for Amy's current medications, allergies and problem list. Please contact patient for scheduling questions or concerns. CURRENT MEDS: Current Outpatient Medications: cloNIDine (CATAPRES) 0.1 MG Tablet, Take one to two tabs po qhs for sleep, Disp: 180 Tablet, Rfl: 3 diazePAM (VALIUM) 2 MG Tablet, Take 1 Tablet by mouth every 8 hours as needed for Other (vertigo)., Disp: 90 Tablet, Rfl: 0 Ear Drops 6.5 % Solution, Place in both ears as needed., Disp: , Rfl: letrozole (FEMARA) 2.5 MG Tablet, TAKE 1 TABLET BY MOUTH EVERY DAY, Disp: 90 Tablet, Rfl: 3 levothyroxine (SYNTHROID) 50 MCG Tablet, Take 1 Tablet by mouth daily., Disp: 90 Tablet, Rfl: 3 meloxicam (MOBIC) 7.5 MG Tablet, Take 1 Tablet by mouth daily., Disp: 90 Tablet, Rfl: 3 mometasone (ELOCON) 0.1 % Cream, as needed., Disp: , Rfl: naloxone HCl (Narcan) 4 MG/0.1ML Liquid, 1 Tur[place] by Nasal route as needed for Opioid Reversal (opioid overdose). administer for symptoms of overdose (severe sleepiness, breathing problems, not responsive). Call 911. May use additional dose to repeat 1 spray intranasally in 2-3 minutes if needed., Disp: 2 Each, Rfl: 0 ondansetron (ZOFRAN-ODT) 8 MG TABLET DISPERSIBLE, Take 1 Tablet by mouth every 8 hours as needed for Nausea - 1st line., Disp: 40 Tablet, Rfl: 3 pantoprazole (PROTONIX) 40 MG Tablet Delayed Response, TAKE 1 TABLET BY MOUTH EVERY DAY, Disp: 30 Tablet, Rfl: 0 polyethylene glycol (GLYCOLAX, MIRALAX) 17 g Pack, Take 17 g by mouth daily as needed for Constipation - 1st line. Dissolve in 4-8 oz of liquid., Disp: , Rfl: pramipexole (MIRAPEX) 0.125 MG Tablet, Take 1 Tablet by mouth daily as needed for Other., Disp: 90 Tablet, Rfl: 1 SUMAtriptan (IMITREX) 50 MG Tablet, Take 1 Tablet by mouth once as needed for Headaches for up to 1 dose. Use as directed. May repeat dose in 2 hours if headache recurs., Disp: 9 Tablet, Rfl: 3 traMADol (ULTRAM) 50 MG Tablet, Take 1-2 Tablets by mouth every 8 hours as needed for Moderate or more severe pain., Disp: 180 Tablet, Rfl: 2 vitamin b-12 (CYANOCOBALAMIN) 500 MCG Tablet, Take 500 mcg by mouth daily., Disp: , Rfl: VITAMIN D PO, Take 1,000 Units by mouth daily., Disp: , Rfl: No current facility-administered medications for this visit. Facility-Administered Medications Ordered in Other Visits: HEPARIN LOCK FLUSH 10 UNIT/ML IV SOLN, , , , HEPARIN LOCK FLUSH 10 UNIT/ML IV SOLN, , , , ALLERGIES: -- Taxotere [Docetaxel] -- Rash PROBLEM LIST: Patient Active Problem List: Rheumatoid arthritis involving both hands with positive rheumatoid factor (HCC) Malignant neoplasm of left breast in female, HER 2 positive, estrogen receptor positive (HCC) Alcohol abuse, daily use Encounter for screening mammogram for malignant neoplasm of breast H/O tobacco use, presenting hazards to health History of immunotherapy History of cancer chemotherapy History of cardiomyopathy Chronic left-sided low back pain with left-sided sciatica Use of letrozole (Femara) History of therapeutic radiation Presence of tympanostomy tube in tympanic membrane Osteopenia Hypothyroidism Abdominal pain Elevated LFTs B12 deficiency Vitamin D overdose RUQ pain Loose stools Postprandial abdominal pain in right upper quadrant Alcohol dependence Chemotherapy-induced nausea Hearing loss Hematuria Urinary frequency Vertigo Chronic pain syndrome Hypotension RLS (restless legs syndrome) Gastroesophageal reflux disease without esophagitis Trigger finger of left thumb New onset of headache in cancer patient Tobacco use disorder, continuous Soft tissue infection Therapeutic drug monitoring Mastoid disorder, bilateral Intractable chronic cluster headache * Consult, Test & Initiate Treatment (Routine) - Open Specialty Diagnoses / Procedures Referred By Contac t Referred To Contact Diagnoses Vertigo Intractable chronic cluster headache Patrice Brand MD [address] [address] Phone: tel: fax: [facility] - Neurology [facility] [address] [place] [address] Phone: tel: fax: Referral ID Status Reason Start Date Expiration Date Visits Re quested Visits Authorized [id number] Open 08/06/2024 1 1 * Consult, Test & Initiate Treatment (Less Than 2 Weeks) - Open Specialty Diagnoses / Procedures Referred By Pk t Referred To Contact Otolaryngology Diagnoses Bilateral hearing loss, unspecified hearing loss type Mastoid disorder, bilateral Patrice Brand MD #[address] [address] Phone: tel: fax: [facility] General Surgery [facility] [address] [address] Phone: tel: fax: Referral ID Status Reason Start Date Expiration Date Visits Re quested Visits Authorized [id number] Open 08/06/2024 1 1 Scheduling Instructions Amy is being referred for bilateral mastoid effusions noted on MRI brain & bilateral hearing loss. She will have audiology exam soon. Please contact patient for scheduling questions or concerns. Reason for Visit * Reason Comments Follow-up 4 mo fu Encounter Details Date Type Department Care Team (Late st Contact Info) Description 08/06/2024 10:45 AM CDT Office Visit [facility] [address] [place] [address] Patrice Brand MD #[address] [address] Vertigo (Primary Dx); Rheumatoid arthritis involving both hands with positive rheumatoid factor (HCC); Chronic left-sided low back pain with left-sided sciatica; Gastroesophageal reflux disease without esophagitis; Therapeutic drug monitoring; Intractable chronic cluster headache; Bilateral hearing loss, unspecified hearing loss type; Mastoid disorder, bilateral; Chronic right shoulder pain; Hypotension, unspecified hypotension type Discharge Disposition: Discharged to home or Selfcare Social History Tobacco Use Types Packs/Day Years Used Date Smoking Tobacco: Every Day Cigarettes 1 35.9 Started: 09/29/1988 Smokeless Tobacco: Never Tobacco Cessation:Ready to Q uit: No; Counseling Given: Yes Comments:Declined counseling. Alcohol Use Standard Drinks/Week Comments Yes 30 (1 standard drink = 0.6 oz pure alcohol) states she starting drinking after her daughter . [facility] Utilities Answer Date Recorded In the past 12 months has [employer], oil, or water [employer] threatened to shut off services in your [...] often do you attend chur ch or adventist services? Never 04/04/2023 Do you belong to any clubs o r organizations such as pentecostalism groups, unions, fraternal or athletic groups, or [...] Total Score - Questions 1-9 0 07/17 [facility] [place] of Occupat ional Health - Occupational Stress [...] place to sleep or slept in a retirement (including now)? No 04/04/2023 Sexually Active Control [...] on file documented as of this encounter Last Filed Vital Signs Vital Sign Reading Time Taken Comments Blood Pressure 102/80 08/06/2024 10:38 AM CDT Pulse 59 08/06/2024 10:38 AM CDT Temperature 36.1 C (96.9 F) 08/06/2024 10:38 AM CDT Respiratory Rate - - Oxygen Saturation 98% 08/06/2024 10:38 AM CDT Inhaled Oxygen Concentration - - Weight 55.3 kg (122 lb) 08/06/2024 10:38 AM CDT Height 172.7 cm (5' 8 ) 08/06/2024 10:38 AM CDT Body Mass Index 18.55 08/06/2024 10:38 AM CDT documented in this encounter Functional Status * Question Answer [...] Questionnaire -2 Score 0 08/06/2024 10:42 AM CDT Feli Roque MA documented as of this encounter Patient Instructions * Patient Instructions* Patrice Brand MD - 08/06/2024 10:45 AM CDT Try [place] tea to help you sleep. See all other doctors as scheduled. Do drug test today! See the ENT doctor for hearing loss and the mastoid effusions. See Dr. De Oliveira / Neurologist for headaches. Take Imitrex for headaches as needed. 7. See Dr. Hou for the shoulder pain. documented in this encounter Progress Notes * Feli Roque MA - 08/06/2024 10:45 AM CDT Amy screened for Social Determinants of Health and screened positive for Physical Activity, Social Connections, and Tobacco Use. Patient declined resources. * Feli Roque MA - 08/06/2024 10:45 AM CDT Amy Mcgee, 54 y.o., female is here for Follow-up (4 mo fu ) Medication Refills: Patient reports/denies need for medication refills. Orders Pended: yes Requested Prescriptions Pending Prescriptions Disp Refills traMADol (ULTRAM) 50 MG Tablet 180 Tablet 2 Sig: Take 1-2 Tablets by mouth every 8 hours as needed for Moderate or more severe pain. diazePAM (VALIUM) 2 MG Tablet 90 Tablet 0 Sig: Take 1 Tablet by mouth every 8 hours as needed for Other (vertigo). ondansetron (ZOFRAN-ODT) 8 MG TABLET DISPERSIBLE 40 Tablet 3 Sig: Take 1 Tablet by mouth every 8 hours as needed for Nausea - 1st line. Home Medications Medication Sig Start Date End Date Taking? Authorizing Provider Ascorbic Acid (VITAMIN C PO) Take 500 mg by mouth daily. Patient not taking: Reported on 08/06/2024 Susan Montalvo MD cloNIDine (CATAPRES) 0.1 MG Tablet Take one to two tabs po qhs for sleep 08/11/23 Yes Lit Webb MD diazePAM (VALIUM) 2 MG Tablet Take 1 Tablet by mouth every 8 hours as needed for Other (vertigo). 03/27/24 Yes Patrice Brand MD Ear Drops 6.5 % Solution Place in both ears as needed. 12/07/23 Yes Susan Montalvo MD letrozole (FEMARA) 2.5 MG Tablet TAKE 1 TABLET BY MOUTH EVERY DAY 03/26/24 Yes Mac Zarate MD levothyroxine (SYNTHROID) 50 MCG Tablet Take 1 Tablet by mouth daily. 12/11/23 Yes Patrice Brand MD meloxicam (MOBIC) 7.5 MG Tablet Take 1 Tablet by mouth daily. 12/11/23 Yes Patrice Brand MD mometasone (ELOCON) 0.1 % Cream as needed. 03/21/24 Yes Susan Montalvo MD naloxone HCl (Narcan) 4 MG/0.1ML Liquid 1 [place]on by Nasal route as needed for Opioid Reversal (opioid overdose). administer for symptoms of overdose (severe sleepiness, breathing problems, not responsive). Call 911. May use additional dose to repeat 1 spray intranasally in 2-3 minutes if needed. 12/02/22 Yes Lit Webb MD ondansetron (ZOFRAN-ODT) 8 MG TABLET DISPERSIBLE Take 1 Tablet by mouth every 8 hours as needed forNausea - 1st line. 03/27/24 Yes Patrice Brand MD pantoprazole (PROTONIX) 40 MG Tablet Delayed Response TAKE 1 TABLET BY MOUTH EVERY DAY 08/31/23 Yes Patrice Brand MD polyethylene glycol (GLYCOLAX, MIRALAX) 17 g Pack Take 17 g by mouth daily as needed for Constipation - 1st line. Dissolve in 4-8 oz of liquid. Yes Susan Montalvo MD pramipexole (MIRAPEX) 0.125 MG Tablet Take 1 Tablet by mouth daily as needed for Other. 12/11/23 YesPatrice Brand MD solifenacin (VESICARE) 5 MG Tablet Take 1 Tablet by mouth daily. Patient not taking: Reported on 04/08/2024 10/23/23 Patrice Brand MD traMADol (ULTRAM) 50 MG Tablet Take 1-2 Tablets by mouth every 8 hours as needed for Moderate or more severe pain. 12/11/23 Yes Patrice Brand MD vitamin b-12 (CYANOCOBALAMIN) 500 MCG Tablet Take 500 mcg by mouth daily. Yes Susan Montalvo MD VITAMIN D PO Take 1,000 Units by mouth daily. Yes Susan Montalvo MD There are no discontinued medications. I have reviewed the home medication list with the patient and have reconciled discrepancies. The list is accurate to the best of my knowledge. Smoking Status: Social History Tobacco Use Smoking status: Every Day Current packs/day: 1.00 Average packs/day: 1 pack/day for 35.9 years (35.9 ttl pk-yrs) Types: Cigarettes Start date: 09/29/1988 Smokeless tobacco: Never Tobacco comments: Declined counseling. Vaping Use Vaping status: Former Substance Use Topics Alcohol use: Yes Alcohol/week: 18.0 oz Types: 30 Cans of beer per week Comment: states she starting drinking after her daughter . Drug use: No Smoking Cessation Counseling Given: yes Health Care Maintenance: Health Maintenance Due Topic Date Due TdaP Immunization Never done Hepatitis B Immunization (1 of 3 - 19+ 3-dose series) Never done Zoster Immunization (1 of 2) Never done Lung Cancer Screening 08/12/2023 SARS-COV-2 Immunization ( season) 2023 Cervical Cancer Screening (CCS) 03/22/2024 Mammogram 10/31/2024 Orders Pended: no The following BPA's have been addressed with the patient today: BMI * Patrice Brand MD - 08/06/2024 10:45 AM CDT CHIEF COMPLAINT: Vertigo. SUBJECTIVE: Patient is here today to discuss episodes of vertigo that she has been having. She had headache as well. She has seen Dr. Hou in the past. Dr. Ford ordered MRI of her brain which showed bilateral mastoid effusions. Has been having hearing loss as well. She is going to be seeing an manager imaging soon. She also complains of chronic right shoulder pain. This has been going on for the last couple of months. She is due for drug testing as well. PDMP was reviewed and verified. No evidence of abuse or diversion was noted. I have reviewed all the systems. They are negative except as mentioned in HPI. OBJECTIVE: Vital Signs: Blood pressure 102/80, pulse 59, temperature 96.9, weight 122. General: Patient is talkative, cooperative, and appropriately dressed. Chest: Clear to auscultation bilaterally. No wheezing. Heart: S1, S2. No murmurs. Neck: No carotid bruits auscultated. Neurological: Cranial nerves 2-12 are grossly intact. ASSESSMENT/PLAN: 1. Vertigo, could be due to hypotension. I will have her cut back on the clonidine to just 1 a day. I told her to take chamomile tea if she needs help to sleep. 2. Chronic pain syndrome. Will get a urine drug screen on her today. 3. Headache. I put her on Imitrex. We will have her see Neurology. 4. Mastoid effusions. I will refer her to Ears, Nose, and Throat. 5. Hearing loss. She is to see the manager imaging and also see Ears, Nose, and Throat thereafter. 6. Right shoulder pain. I will have her see Dr. Hou for this. 7. Patient is to follow up in 3 months. IJN: [id number] documented in this encounter Plan of Treatment Upcoming Encounters Date Type Department Care Team (Late st Contact Info) Description 09/13/2024 1:30 PM CDT Office Visit [facility] - Obstetrics & Gynecology [facility] [address] [place] [address] Katja Galan, SEWER HEAD, CREPING MACHINE OPERATOR HELPER [address] [place] [address] 09/23/2024 9:30 AM CDT Clinical Support [facility] [address] [place] [address] Mac Zarate MD [address] [place] [address] Discharge Disposition: Discharged to home or Selfcare 10/09/2024 10:00 AM CDT Clinical Support [facility] [address] [place] [address] Mac Zarate MD [address] [place] [address] Discharge Disposition: Discharged to home or Selfcare 10/09/2024 11:00 AM CDT Office Visit [facility] Neurology [facility] [address] [place] [address] Oh De Oliveira MD [address] [place] [address] 11/18/2024 9:30 AM CDT Clinical Support [facility] [address] [place] [address] Mac Zarate MD [address] [place] [address] Discharge Disposition: Discharged to home or Selfcare 12/12/2024 10:45 AM CDT Office Visit [facility] [address] [place] [address] Patrice Brand MD [address] [address] 01/13/2025 9:30 AM CDT Clinical Support [facility] [address] [place] [address] Mac Zarate MD [address] [place] [address] Discharge Disposition: Discharged to home or Selfcare 04/01/2025 9:30 AM TALENT ACQUISITION LEAD Clinical Support [facility] [address] [place] [address] Mac Zarate MD [address] [place] [address] Discharge Disposition: Discharged to home or Selfcare 04/09/2025 11:15 AM TALENT ACQUISITION LEAD Office Visit [facility] [address] [place] [address] Mac Zarate MD [address] [place] [address] Ramona Honeycutt, SEWER HEAD, CREPING MACHINE OPERATOR HELPER [address] [place] [address] Discharge Disposition: Discharged to home or Selfcare 04/09/2025 11:30 AM TALENT ACQUISITION LEAD Clinical Support [facility] [address] [place] [address] Discharge Disposition: Discharged to home or Selfcare 09/23/2025 10:00 AM CDT Office Visit [facility] [address] [place] [address] Ander Ford MD [address] [place] [address] Discharge Disposition: Discharged to home or Selfcare Scheduled Orders Name Type Priority Associated Diagnoses Orde r Schedule URINE DRUG SCREEN Lab Today Therapeutic drug monitoring Ordered: 08/06/2024 Scheduled Referrals Name Type Priority Associated Diagnoses Order Schedule ENT REFERRAL Outpatient Referral Less Than 2 weeks Bilateral hearing loss, unspecified hearing loss type Mastoid disorder, bilateral Expected: 08/06/2024 (Approximate), Expires: 08/06/2025 NEUROLOGY REFERRAL Outpatient Referral Routine Vertigo Intractable chronic cluster headache Expected: 08/06/2024, Expires: 08/06/2025 EXTERNAL ORTHOPEDIC REFERRAL Outpatient Referral Less Than 2 weeks Chronic right shoulder pain Expected: 08/06/2024 (Approximate), Expires: 08/06/2025 documented as of this encounter Visit Diagnoses Diagnosis Vertigo- Primary Dizziness and giddiness Rheumatoid arthritis involving both hands with positive rheumatoid factor (HCC) Chronic left-sided low back pain with left-sided sciatica Gastroesophageal reflux disease without esophagitis Esophageal reflux Therapeutic drug monitoring Encounter for therapeutic drug monitoring Intractable chronic cluster headache Chronic cluster headache Bilateral hearing loss, unspecified hearing loss type Mastoid disorder, bilateral Chronic right shoulder pain Pain in joint, shoulder region Hypotension, unspecified hypotension type documented in this encounter Additional Health Concerns Assessment Noted Time PHQ-9 Depression Total Score: 0 08/07/19 25 10:42 AM CDT documented as of this encounter Care Teams Factory Helper Relationship Specialty Start Date End Date Patrice Brand MD [address]2 [facility] [address] [place] [address] PCP - General Family Medicine 08/17/23 Slava Robles MD Obstetrics & Gynecology 08/16/16 Mac Zarate MD Consulting Physician Hematology 04/18/18 Ander Ford MD Consulting Physician Radiation Oncology 04/24/18 Charlie Perea MD [address] [facility] [address] [place] [address] Consulting Physician Otolaryngology 02/13/20 Ajit Kinsey MD #2 [facility] [address] [place] [address] Consulting Physician Urology 11/29/23 Juanito Pearson MD [address] [address] Consulting Physician Colon and Rectal Surgery 01/10/24 documented as of this encounter
--- OUTSIDE RECORDS SUMMARY | 2024-08-07 10:38 | XMS_ITS | Encounter Summary ---
Author Organization [facility] Address [address] [place] [address] Phone Care Team Providers Care Plan Consultant Name Role Phone Slava Robles MD Unavailable [phone] Noah Menard MD Primary Care Provider [phone] Mac Zarate MD Unavailable [phone] Ander Ford MD Unavailable [phone] Milly Costa MD Unavailable [phone] Charlie Perea MD Unavailable [phone] Jaycee Lisa APRN, TRAINING DEVELOPER Unavailable [phone] Lit Webb MD Primary Care Provider [phone] Patrice Brand MD Primary Care Provider [phone] Ajit Kinsey MD Unavailable Juanito Pearson MD Unavailable Encounter Details Date Type Department Care Team (Latest Contact Info) Description 01/31/2020 Transcribe Orders [facility] Preop/Pacu II 1 [place] [id number] Charlie Perea MD [address] [facility] [address] [place] [address] Pre-op testing (Primary Dx) Social History Tobacco Use Types Packs/Day Years Used Date Smoking Tobacco: Every Day Cigarettes 1 35.9 Started: 09/29/1988 Smokeless Tobacco: Never Comments:Declined counseling . Alcohol Use Standard Drinks/Week Comments Yes 0 (1 standard drink = 0.6 oz pur e alcohol) 6-pack of beer daily. PHQ-2 Answer Date Recorded Total Score - Questions 1-9 0 08/2019 Sexually Active Control Partners Comments Not Currently [...] have Coronavirus / COVID-19? No / Unsure 01/25/2020 9:33 AM CDT documented as of this encounter Plan of Treatment Upcoming Encounters Date Type Department Care Team (Late st Contact Info) Description 09/13/2024 1:30 PM CDT Office Visit [facility] Medical Group - Obstetrics & Gynecology [facility] #2 [place] [address] Katja Galan, AIRLINE RESERVATION AGENT, TRAINING DEVELOPER #2 [place] [address] 09/23/2024 9:30 AM CDT Clinical Support [facility] Oncology Services [address] [place] [address] Mac Zarate MD [address] [place] [address] Discharge Disposition: Discharged to home or Selfcare 10/09/2024 10:00 AM CDT Clinical Support [facility] Oncology Services [address] [place] [address] Mac Zarate MD [address] [place] [address] Discharge Disposition: Discharged to home or Selfcare 10/09/2024 11:00 AM CDT Office Visit [facility] Neurology [facility] #2 [place] [address] Oh De Oliveira MD #2 [place] [address] 11/18/2024 9:30 AM CDT Clinical Support [facility] Oncology Services [address] [place] [address] Mac Zarate MD 0 [place] [address] Discharge Disposition: Discharged to home or Selfcare 12/12/2024 10:45 AM CDT Office Visit [facility] #2 [place] [address] Patrice Brand MD #[address] [address] 01/13/2025 9:30 AM CDT Clinical Support [facility] Oncology Services [address] [place] [address] Mac Zarate MD 0 [place] [address] Discharge Disposition: Discharged to home or Selfcare 04/01/2025 9:30 AM PARTS COUNTER CLERK Clinical Support [facility] Oncology Services [address] [place] [address] Mac Zarate MD 0 [place] [address] Discharge Disposition: Discharged to home or Selfcare 04/09/2025 11:15 AM PARTS COUNTER CLERK Office Visit [facility] Oncology Services [address] [place] [address] Mac Zarate MD [address] [place] [address] Ramona Honeycutt, AIRLINE RESERVATION AGENT, TRAINING DEVELOPER [address] [place] [address] Discharge Disposition: Discharged to home or Selfcare 04/09/2025 11:30 AM PARTS COUNTER CLERK Clinical Support [facility] Oncology Services [address] [place] [address] Discharge Disposition: Discharged to home or Selfcare 09/23/2025 10:00 AM CDT Office Visit [facility] Oncology Services [address] [place] [address] Ander Ford MD [address] [place] [address] Discharge Disposition: Discharged to home or Selfcare Scheduled Orders Name Type Priority Associated Diagnoses Orde r Schedule SARS-COV-2 BY MOLECULAR Microbiology Routine Pre-op testing Expected: 02/14/2020, Expires: 03/02/2020 documented as of this encounter Visit Diagnoses Diagnosis Pre-op testing- Primary Preoperative examination, unspecified documented in this encounter Additional Health Concerns Infection Onset Date Last Indicated Resolved Time COVID - 19 01/11/2021 01/13/2021 01/31/2021 12:1 6 AM CDT C. difficile Rule-Out 11/02/2022 11/02/20222022 12:16 AM CDT COVID - 19 05/09/2024 05/09/2024 05/09/2024 12:5 4 PM PARTS COUNTER CLERK Assessment Noted Time PHQ-9 Depression Total Score: 0 01/20/20 20 11:08 AM CDT documented as of this encounter Care Teams Plan Consultant Relationship Specialty Start Date End Date Noah Menard MD #[address] [address] PCP - General Family Medicine 07/10/17 12/23/21 Lit Webb MD #1 [place] [address] PCP - General Family Medicine 12/24/21 08/16/23 Patrice Brand MD #[address] [address] PCP - General Family Medicine 08/17/23 Slava Robles MD Obstetrics & Gynecology 08/16/16 Mac Zarate MD #[address] [address] Consulting Physician Hematology 04/18/18 Ander Ford MD #[address] [address] Consulting Physician Radiation Oncology 04/24/18 Milly Costa MD #[address] [address] Consulting Physician Urology 04/25/18 02/16/21 Charlie Perea MD [address] [place] [address] Consulting Physician Otolaryngology 02/13/20 Jaycee Lisa APRN, TRAINING DEVELOPER [address] [place] [address] Nurse Practitioner Medical Oncology 08/13/20 04/12/22 Ajit Kinsey MD #[address] [address] Consulting Physician Urology 11/29/23 Juanito Pearson MD #[address] [address] Consulting Physician Colon and Rectal Surgery 01/10/24 documented as of this encounter
--- OUTSIDE RECORDS SUMMARY | 2024-08-07 10:38 | XMS_ITS | Encounter Summary ---
Author Organization [employer] Care Team Providers Care Dry Sand Molder Name Role Phone Slava Robles MD Unavailable [phone] Mac Zarate MD Unavailable [phone] Ander Ford MD Unavailable [phone] Charlie Perea MD Unavailable [phone] Patrice Brand MD Primary Care Provider [phone] Ajit Kinsey MD Unavailable Juanito Pearson MD Unavailable Encounter Details Date Type Department Care Team (Latest Contact Info) Description 08/06/2024 Travel Social History Tobacco Use Types Packs/Day Years Used Date Smoking Tobacco: Every Day Cigarettes 1 35.9 Started: 09/29/1988 Smokeless Tobacco: Never Comments:Declined counseling . Alcohol Use Standard Drinks/Week Comments Yes 30 (1 standard drink = 0.6 oz pure alcohol) states she starting drinking after her daughter . [facility] Utilities Answer Date Recorded In the past 12 months has [employer], gas, oil, or water [employer] threatened to shut off services in your [...] often do you attend chur ch or yazidi services? Never 04/04/2023 Do you belong to any clubs o r organizations such as yazdanism groups, unions, fraternal or athletic groups, or [...] Total Score - Questions 1-9 0 07/17 [facility] Occupat ional Health - Occupational Stress [...] place to sleep or slept in a halfway (including now)? No 04/04/2023 Sexually Active Control [...] things Not at all 08/06/2024 10:42 AM ELSIET Feli Roque MA Feeling down, depressed, or hopeless Not at all 08/06/2024 10:42 AM CDT Feli Roque MA * Over the past 2 weeks, how often have you been bothered by any of the following problems? Question Answer Date of Assessment Author Patient Health Questionnaire -2 Score 0 08/06/2024 10:42 AM ELSIET Feli Roque MA documented as of this encounter Plan of Treatment Upcoming Encounters Date Type Department Care Team (Late st Contact Info) Description 09/13/2024 1:30 PM CDT Office Visit [facility] Medical Group - Obstetrics & Gynecology [facility] #2 [place] [address] Katja Galan, CRYSTAL LAPPER, MANAGER MAINTENANCE #2 [place] [address] 09/23/2024 9:30 AM CDT Clinical Support [facility] Oncology Services [address] [place] [address] Mac Zarate MD 0 [place] [address] Discharge Disposition: Discharged to home or Selfcare 10/09/2024 10:00 AM CDT Clinical Support [facility] Oncology Services [address] [place] [address] Mac Zarate MD 0 [place] [address] Discharge Disposition: Discharged to home or Selfcare 10/09/2024 11:00 AM CDT Office Visit [facility] Neurology [facility] #2 [place] [address] Oh De Oliveira MD #2 [place] [address] 11/18/2024 9:30 AM CDT Clinical Support [facility] Oncology Services [address] [place] [address] Mac Zarate MD 0 [place] [address] Discharge Disposition: Discharged to home or Selfcare 12/12/2024 10:45 AM CDT Office Visit [facility] - Family [facility] #2 [place] [address] Patrice Brand MD #[address] [address] 01/13/2025 9:30 AM CDT Clinical Support [facility] Oncology Services [address] [place] [address] Mac Zarate MD [address] [place] [address] Discharge Disposition: Discharged to home or Selfcare 04/01/2025 9:30 AM CAN FEEDER Clinical Support [facility] Oncology Services [address] [place] [address] Mac Zarate MD [address] [place] [address] Discharge Disposition: Discharged to home or Selfcare 04/09/2025 11:15 AM CAN FEEDER Office Visit [facility] Oncology Services [address] [place] [address] Mac Zarate MD [address] [place] [address] Ramona Honeycutt, CRYSTAL LAPPER, MANAGER MAINTENANCE [address] [place] [address] Discharge Disposition: Discharged to home or Selfcare 04/09/2025 11:30 AM CAN FEEDER Clinical Support [facility] Oncology Services [address] [place] [phone] Discharge Disposition: Discharged to home or Selfcare 09/23/2025 10:00 AM CDT Office Visit [facility] Oncology Services [address] [place] [address] Ander Ford MD [address] [place] [address] Discharge Disposition: Discharged to home or Selfcare documented as of this encounter Visit Diagnoses Not on filedocumented in this encounter Additional Health Concerns Assessment Noted Time PHQ-9 Depression Total Score: 0 08/07/19 10:42 AM CDT documented as of this encounter Care Teams Dry Sand Molder Relationship Specialty Start Date End Date Patrice Brand MD #2 [facility] [address] [place] [address] PCP - General Family Medicine 08/17/23 Slava Robles MD Obstetrics & Gynecology 08/16/16 Mac Zarate MD Consulting Physician Hematology 04/18/18 Ander Ford MD Consulting Physician Radiation Oncology 04/24/18 Charlie Perea MD [address] [facility] [address] [place] [address] Consulting Physician Otolaryngology 02/13/20 Ajit Kinsey MD #2 [facility] [address] [place] [address] Consulting Physician Urology 11/29/23 Juanito Pearson MD #2 [facility] [address] [place] [address] Consulting Physician Colon and Rectal Surgery 01/10/24 documented as of this encounter
--- OUTSIDE RECORDS SUMMARY | 2024-08-07 10:38 | XMS_ITS | Encounter Summary ---
Author Organization [facility] Address [address] [facility] [address] [place] [address] Phone Care Team Providers Care Combiner Name Role Phone Slava Robles MD Unavailable [phone] Noah Menard MD Primary Care Provider [phone] Mac Zarate MD Unavailable [phone] Ander Ford MD Unavailable [phone] Charlie Perea MD Unavailable [phone] Jaycee Lisa APRN, CNP Unavailable [phone] Lit Webb MD Primary Care Provider [phone] Patrice Brand MD Primary Care Provider [phone] Ajit Kinsey MD Unavailable Juanito Pearson MD Unavailable Reason for Visit * Reason Comments Medication Refill Encounter Details Date Type Department Care Team (Late st Contact Info) Description 07/23/20[facility] [address] [place] [address] Mac Zarate MD 0 [place] [address] Medication Refill Social History Tobacco [...] suspected to have Coronavirus/COVID-19? No / Unsure 07/13/2021 10:38 AM CDT documented as of this encounter Miscellaneous Notes * Telephone Encounter - Fabiola Negrete RN - 07/23/2021 8:13 AM CDT Refilled Letrozole documented in this encounter Plan of Treatment Upcoming Encounters Date Type Department Care Team (Late st Contact Info) Description 09/13/2024 1:30 PM CDT Office Visit [facility] Medical Group - Obstetrics & Gynecology [facility] #2 [place] [address] Katja Galan, NET DEVELOPER CONTRACT, ACCOUNTING MACHINE MECHANIC #[address] [place] [address] 09/23/2024 9:30 AM CDT Clinical Support [facility] Oncology Services [address] [place] [address] Mac Zarate MD [address] [place] [address] Discharge Disposition: Discharged to home or Selfcare 10/09/2024 10:00 AM CDT Clinical Support [facility] Oncology Services [address] [place] [address] Mac Zarate MD 0 [place] [address] Discharge Disposition: Discharged to home or Selfcare 10/09/2024 11:00 AM CDT Office Visit [facility] Neurology [facility] #2 [place] [address] Oh De Oliveira MD #2 [place] [address] 11/18/2024 9:30 AM CDT Clinical Support [facility] Oncology Services [address] [place] [address] Mac Zarate MD [address] [place] [address] Discharge Disposition: Discharged to home or Selfcare 12/12/2024 10:45 AM CDT Office Visit [facility] #2 [place] [address] Patrice Brand MD #[address] [address] 01/13/2025 9:30 AM CDT Clinical Support [facility] Oncology Services [address] [place] [address] Mac Zarate MD [address] [place] [address] Discharge Disposition: Discharged to home or Selfcare 04/01/2025 9:30 AM DEPARTMENT MGR Clinical Support [facility] Oncology Services [address] [place] [address] Mac Zarate MD [address] [place] [address] Discharge Disposition: Discharged to home or Selfcare 04/09/2025 11:15 AM DEPARTMENT MGR Office Visit [facility] Oncology Services [address] [place] [address] Mac Zarate MD [address] [place] [address] Ramona Honeycutt APRN, ACCOUNTING MACHINE MECHANIC [address] [place] [address] Discharge Disposition: Discharged to home or Selfcare 04/09/2025 11:30 AM DEPARTMENT MGR Clinical Support [facility] Oncology Services [address] [place] [phone] Discharge Disposition: Discharged to home or Selfcare 09/23/2025 10:00 AM CDT Office Visit [facility] Oncology Services [address] [place] [phone] Ander Ford MD [address] [place] [address] Discharge Disposition: Discharged to home or Selfcare documented as of this encounter Visit Diagnoses Not on filedocumented in this encounter Additional Health Concerns Infection Onset Date Last Indicated Resolved Time C. difficile Rule-Out 11/02/2022 11/02/20222022 12:16 AM CDT COVID - 19 05/09/2024 05/09/2024 05/09/2024 12:5 4 PM DEPARTMENT MGR Assessment Noted Time PHQ-9 Depression Total Score: 0 11/11/19 21 10:00 AM CDT documented as of this encounter Care Teams Combiner Relationship Specialty Start Date End Date Noah Menard MD #[address] [address] PCP - General Family Medicine 07/10/17 12/23/21 Lit Webb MD #1 [place] [address] PCP - General Family Medicine 12/24/21 08/16/23 Patrice Brand MD #[address] [address] PCP - General Family Medicine 08/17/23 Slava Robles MD Obstetrics & Gynecology 08/16/16 Mac Zarate MD #[address] [address] Consulting Physician Hematology 04/18/18 Ander Ford MD #[address] [address] Consulting Physician Radiation Oncology 04/24/18 Charlie Perea MD [address] [place] [address] Consulting Physician Otolaryngology 02/13/20 Jaycee Lisa, NET DEVELOPER CONTRACT, ACCOUNTING MACHINE MECHANIC [address] [place] [address] Nurse Practitioner Medical Oncology 08/13/20 04/12/22 Ajit Kinsey MD #[address] [facility] [address] [place] [address] Consulting Physician Urology 11/29/23 Juanito Pearson MD #[address] [address] Consulting Physician Colon and Rectal Surgery 01/10/24 documented as of this encounter
--- OUTSIDE RECORDS SUMMARY | 2024-08-07 10:38 | XMS_ITS | Encounter Summary ---
Author Organization [facility] Address [address] [place] [address] Phone Care Team Providers Care Carbon Sequestration Plant Manager Name Role Phone Slava Robles MD Unavailable [phone] Mac Zarate MD Unavailable Ander Ford MD Unavailable [phone] Charlie Perea MD Unavailable [phone] Patrice Brand MD Primary Care Provider [phone] Ajit Kinsey MD Unavailable Juanito Pearson MD Unavailable Encounter Details Date Type Department Care Team (Latest Contact Info) Description 10/09/2023 [facility] 1 [place] [address] Charlie Perea MD [address] [place] [address] Eustachian tube dysfunction, bilateral (Primary Dx); Pre-op testing Social History Tobacco Use Types Packs/Day Years Used Date Smoking Tobacco: Every Day Cigarettes 1 35.9 Started: 09/29/1988 Smokeless Tobacco: Never Comments:Declined counseling . Alcohol Use Standard Drinks/Week Comments Not Currently 0 (1 standard drink = 0.6 oz pur e alcohol) stopped drinking 07/2023 [facility] Utilities Answer Date Recorded In the [...] any clubs o r organizations such as worship groups, unions, fraternal or athletic groups, or [...] Total Score - Questions 1-9 0 06/16 [facility] [place] of Occupat ional Health - Occupational Stress [...] place to sleep or slept in a mcfp (including now)? No 04/04/2023 Sexually Active Control [...] on file documented as of this encounter Plan of Treatment Upcoming Encounters Date Type Department Care Team (Late st Contact Info) Description 09/13/2024 1:30 PM CDT Office Visit [facility] Medical Group - Obstetrics & Gynecology [facility] #2 [place] [address] Katja Galan, COLORED LIQUID PLASTIC APPLIER, CROWN BLOCKER #2 [place] [address] 09/23/2024 9:30 AM CDT [facility] On[facility] Services [address] [place] [address] Mac Zarate MD 0 [place] [address] Discharge Disposition: Discharged to home or Selfcare 10/09/2024 10:00 AM CDT Clinical Support [facility] Oncology Services [address] [place] [address] Mac Zarate MD 0 [place] [address] Discharge Disposition: Discharged to home or Selfcare 10/09/2024 11:00 AM CDT Office Visit [facility] Neurology [facility] #2 [place] [address] Oh De Oliveira MD #2 [place] [address] 11/18/2024 9:30 AM CDT Clinical Support [facility] Oncology Services [address] [place] [address] Mac Zarate MD 0 [place] [address] Discharge Disposition: Discharged to home or Selfcare 12/12/2024 10:45 AM CDT Office Visit [facility] - Family Medicine [facility] #2 [place] [address] Patrice Brand MD #[address] [address] 01/13/2025 9:30 AM CDT Clinical Support [facility] Oncology Services [address] [place] [address] Mac Zarate MD [address] [place] [address] Discharge Disposition: Discharged to home or Selfcare 04/01/2025 9:30 AM IT INSTRUCTOR Clinical Support [facility] Oncology Services [address] [place] [address] Mac Zarate MD [address] [place] [address] Discharge Disposition: Discharged to home or Selfcare 04/09/2025 11:15 AM IT INSTRUCTOR Office Visit [facility] Oncology Services [address] [place] [address] Mac Zarate MD [address] [place] [address] Ramona Honeycutt, COLORED LIQUID PLASTIC APPLIER, CROWN BLOCKER 0 [place] [address] Discharge Disposition: Discharged to home or Selfcare 04/09/2025 11:30 AM IT INSTRUCTOR Clinical Support [facility] Oncology Services [address] [place] [address] Discharge Disposition: Discharged to home or Selfcare 09/23/2025 10:00 AM CDT Office Visit [facility] Oncology Services [address] [place] [address] Ander Ford MD [address] [place] [address] Discharge Disposition: Discharged to home or Selfcare documented as of this encounter Results * POTASSIUM (K) (10/11/2023 10:41 AM CDT) [facility] [address] POTASSIUM 4.1 3.5 - 5.1 mmol/L 10/11/2023 12:32 PM CDT [facility] Blood Venipuncture / Unknown 10/11/2023 10:41 AM CDT 10/11/2023 12:03 PM CDT us Charlie Perea MD CHEMISTRY ORDERABLES Final Re sult [facility] #[address] [facility] [place] [address] documented in this encounter Visit Diagnoses Diagnosis Eustachian tube dysfunction, bilateral- Primary Pre-op testing Preoperative examination, unspecified documented in this encounter Additional Health Concerns Infection Onset Date Last Indicated Resolved Time COVID - 19 05/09/2024 05/09/2024 05/09/2024 12:5 4 PM IT INSTRUCTOR Assessment Noted Time PHQ-9 Depression Total Score: 0 11/11/19 21 10:00 AM CDT documented as of this encounter Care Teams Carbon Sequestration Plant Manager Relationship Specialty Start Date End Date Patrice Brand MD #[address] [address] PCP - General Family Medicine 08/17/23 Slava Robles MD Obstetrics & Gynecology 08/16/16 Mac Zarate MD Consulting Physician Hematology 04/18/18 Ander Ford MD Consulting Physician Radiation Oncology 04/24/18 Charlie Perea MD [address] [facility] [address] [place] [address] Consulting Physician Otolaryngology 02/13/20 Ajit Kinsey MD #2 [place] [facility] [address] [place] [address] Consulting Physician Urology 11/29/23 Juanito Pearson MD #2 [place] [facility] [address] [place] [address] Consulting Physician Colon and Rectal Surgery 01/10/24 documented as of this encounter
--- OUTSIDE RECORDS SUMMARY | 2024-08-07 10:38 | XMS_ITS | Encounter Summary ---
Author Organization [facility] Address [address] [place] [address] Phone Care Team Providers Care Data Warehousing Architect Name Role Phone Slava Robles MD Unavailable [phone] Mac Zarate MD Unavailable [phone] Ander Ford MD Unavailable [phone] Charlie Perea MD Unavailable [phone] Patrice Brand MD Primary Care Provider Ajit Kinsey MD Unavailable Juanito Pearson MD Unavailable Reason for Visit * Reason Comments Medication Refill Encounter Details Date Type Department Care Team (Late st Contact Info) Description 08/31/2023 Refill [facility] - Family Medicine [facility] [address] [place] [address] Patrice Brand MD [address] [address] Medication Refill Social History Tobacco Use Types Packs/Day Years Used Date Smoking Tobacco: Every Day Cigarettes 0.5 35.9 Started: 09/29/1988 Smokeless Tobacco: Never Comments:Declined counseling . Alcohol Use Standard Drinks/Week Comments Yes 42 (1 standard drink = 0.6 oz pu re alcohol) 6-pack of beer daily. [facility] Utilities Answer Date Recorded In the [...] often do you attend chur ch or holiness services? Never 04/04/2023 Do you belong to [...] Recorded Total Score - Questions 1-9 0 2 12/2021 [facility] [place] [facility] - Occupational Stress [...] place to sleep or slept in a jail (including now)? No 04/04/2023 Sexually Active Control [...] encounter Miscellaneous Notes * Telephone Encounter - Margot Mulligan RN - 08/31/2023 10:39 AM CDT Medication(s) refilled and signed per [facility] Chronic Medication Refill Standing Order for Pediatricand Adult Patients. Requested Prescriptions Pending Prescriptions Disp Refills pantoprazole (PROTONIX) 40 MG Tablet Delayed Response [Pharmacy Med Name: PANTOPRAZOLE SOD DR 40 MGTAB] 30 Tablet 0 Sig: TAKE 1 TABLET BY MOUTH EVERY DAY Proton Pump Inhibitors Protocol Passed - 08/31/2023 12:54 AM Passed - No positive test in the past 12 months or most recent test was negative Passed - Visit with relevant provider in past 12 months or upcoming 90 days Recent Visits Date Type Provider Dept 08/11/23 Office Visit Lit Webb MD [facility] 06/28/23 Office Visit Patrice Brand MD [facility] 04/06/23 Office Visit Lit Webb MD [facility] 12/02/22 Office Visit Lit Webb MD [facility] Showing recent visits within past 365 days and meeting all other requirements Future Appointments No visits were found meeting these conditions. Showing future appointments within next 90 days and meeting all other requirements Passed - No active on record documented in this encounter Plan of Treatment Upcoming Encounters Date Type Department Care Team (Late st Contact Info) Description 09/13/2024 1:30 PM CDT Office Visit [facility] Medical [facility] - Obstetrics & Gynecology [facility] [address] [place] [address] Katja Galan, SIDE PANEL HANGER, POUND KEEPER [address] [place] [address] 09/23/2024 9:30 AM CDT Clinical Support [facility] [address] [place] [address] Mac Zarate MD [address] [place] [address] Discharge Disposition: Discharged to home or Selfcare 10/09/2024 10:00 AM CDT Clinical Support [facility] [address] [place] [address] Mac Zarate MD [address] [place] [address] Discharge Disposition: Discharged to home or Selfcare 10/09/2024 11:00 AM CDT Office Visit [facility] Neurology [facility] [address] [place] [address] Oh De Oliveira MD [address] [place] [address] 11/18/2024 9:30 AM CDT Clinical Support [facility] [address] [place] [phone] aMc Zarate MD [address] [place] [address] Discharge Disposition: Discharged to home or Selfcare 12/12/2024 10:45 AM CDT Office Visit [facility] Family [facility] [address] [place] [address] Patrice Brand MD [address] [address] 01/13/2025 9:30 AM CDT Clinical Support [facility] [address] [place] [phone] Mac Zarate MD [address] [place] [address] Discharge Disposition: Discharged to home or Selfcare 04/01/2025 9:30 AM HOSPITAL SECURITY OFFICER Clinical Support [facility] [address] [place] [phone] Mac Zarate MD [address] [place] [address] Discharge Disposition: Discharged to home or Selfcare 04/09/2025 11:15 AM HOSPITAL SECURITY OFFICER Office Visit [facility] [address] [place] [phone] Mac Zarate MD [address] [place] [address] Ramona Honeycutt, SIDE PANEL HANGER, POUND KEEPER [address] [place] [address] Discharge Disposition: Discharged to home or Selfcare 04/09/2025 11:30 AM HOSPITAL SECURITY OFFICER Clinical Support [facility] [address] [place] [phone] Discharge Disposition: Discharged to home or Selfcare 09/23/2025 10:00 AM CDT Office Visit [facility] [address] [place] [phone] Ander Ford MD [address] [place] [address] Discharge Disposition: Discharged to home or Selfcare documented as of this encounter Visit Diagnoses Not on filedocumented in this encounter Additional Health Concerns Infection Onset Date Last Indicated Resolved Time COVID - 19 05/09/2024 05/09/2024 05/09/2024 12:5 4 PM HOSPITAL SECURITY OFFICER Assessment Noted Time PHQ-9 Depression Total Score: 0 11/11/19 10:00 AM CDT documented as of this encounter Care Teams Data Warehousing Architect Relationship Specialty Start Date End Date Patrice Brand MD [address] [address] PCP - General Family Medicine 08/17/23 Slava Robles MD Obstetrics & Gynecology 08/16/16 Mac Zarate MD Consulting Physician Hematology 04/18/18 Ander Ford MD Consulting Physician Radiation Oncology 04/24/18 Charlie Perea MD [address] [place] [address] Consulting Physician Otolaryngology 02/13/20 Ajit Kinsey MD [address] [facility] [address] [place] [address] Consulting Physician Urology 11/29/23 Juanito Pearson MD [address] [facility] [address] [place] [address] Consulting Physician Colon and Rectal Surgery 01/10/24 documented as of this encounter
== END 2024-08-07 09:37 | disposition home or self-care (01) ==
LOC: ANHAUDIO 09:36
PROVIDERS: PCP Family Medicine; Visit Provider Otolaryngology
DX: H90.41 Sensorineural hearing loss, unilateral, right ear, with unrestricted hearing on the contralateral side (principal); H90.72 Mixed conductive and sensorineural hearing loss, unilateral, left ear, with unrestricted hearing on the contralateral side
CPT/HCPCS: 92557; 92567